=== PATIENT | male | born 1960 | race Caucasian/White ===

== ENCOUNTER 2023-05-25 00:19 | Day surgery (SDC) | payer OTHER, SELFPAY ==
[2023-05-18 11:09] VITALS: BMI 41.6
--- NOTE | 2023-05-24 12:24 | WPDANESEPPF ---
Anes - Initial Pre Proc Eval Procedure: Operation Date: 05/25/23 07:30 Proposed Procedures p Colonoscopy - Slava Capellan MD Date/Time: 05/24/23 12:24 Surgeon: Slava Capellan MD Pre Op Diagnosis: hx colon polyps Patient Data Age: 62 Gender: M Height: 1.78 m Weight: 131.8 kg Allergies Allergy/AdvReac Type Severity Reaction Status Date / Time No Known Allergies Allergy Unknown Unverified 05/25/23 06:12 Home Medications Medication Instructions Recorded Confirmed Type latanoprost 0.005 % eye drops 1 drp EACH EYE DAILY 05/18/23 05/18/23 History lorazepam 1 mg tablet 1 mg PO DAILY PRN flying 05/18/23 05/18/23 History metformin 500 mg tablet,extended 500 mg PO DAILY 05/18/23 05/18/23 History release 24 hr sildenafil 100 mg tablet 100 mg PO DAILY PRN Sexual Activity 05/18/23 05/18/23 History simvastatin 20 mg tablet 20 mg PO HS 05/18/23 05/18/23 History Patient hx anesthesia problems: none Family hx anesthesia problems: none Results Review: All pre-operative results and documents have been reviewed as part of the pre-operative evaluation. [facility] Past Medical History Medical History Diabetes type 2, controlled Hyperlipidemia HENOK (obstructive sleep apnea) Social History Social History Smoking status: Never smoker Alcohol intake: current Drinks per week: 2 Substance use: never Living arrangements: with family Spiritual care concerns: No Anes - Eval Final PreProcedure Day of Procedure 05/24/23 12:24 Patient weight: morbidly obese Heart: regular rate and rhythm Lungs: clear to auscultation Airway: Mallampati scale class II Neurological: alert and oriented Last oral intake: >/= 8 hours ASA classification: III Emergent: no Anesthetic plan: proceed Anesthesia type and monitoring: general GIVS and standard monitoring Results Review: All pre-operative results and documents have been reviewed as part of the pre-operative evaluation. Informed Consent: The patient's anesthetic plan and its attendant risks and benefits were discussed with the patient/family/POA. Questions were solicited and answers provided to the satisfaction of the patient/family/POA.
--- NOTE | 2023-05-24 14:56 | PM.HPGS ---
History of Present Illness History of Present Illness Consent: Risks, benefits, and alternatives have been discussed and questions answered. Patient agrees to proceed with procedure. Chief complaint: hx colon polyps Narrative: Silvestre Mendoza is a 62 year old male referred for colon cancer screening. He had 3 polyps removed about 7 years ago at least 1 of which was a tubular adenoma. Review of Systems Review of Systems: All systems reviewed & are unremarkable except as noted in HPI and below PMFSH Past Medical History Medical History Diabetes type 2, controlled Hyperlipidemia HENOK (obstructive sleep apnea) Social History Social History Smoking status: Never smoker Alcohol intake: current Drinks per week: 2 Substance use: never Living arrangements: with family Spiritual care concerns: No Meds Home Medications and Allergies Home Medications Medication Instructions Recorded Confirmed Type latanoprost 0.005 % eye drops 1 drp EACH EYE DAILY 05/18/23 05/18/23 History lorazepam 1 mg tablet 1 mg PO DAILY PRN flying 05/18/23 05/18/23 History metformin 500 mg tablet,extended 500 mg PO DAILY 05/18/23 05/18/23 History release 24 hr sildenafil 100 mg tablet 100 mg PO DAILY PRN Sexual Activity 05/18/23 05/18/23 History simvastatin 20 mg tablet 20 mg PO HS 05/18/23 05/18/23 History Allergies Allergy/AdvReac Type Severity Reaction Status Date / Time No Known Allergies Allergy Unknown Unverified 05/25/23 06:12 Exam Const: General: alert Orientation/consciousness: patient oriented x3 Resp: Auscultation: clear to auscultation bilaterally Cardio: Rhythm: regular rhythm GI: GI Palp: Yes Soft to palpation and No Tenderness to palpation present (GI) Neuro: General: patient oriented x3 Assessment and Plan Assessment and plan (1) Colon cancer screening: Code(s): Z12.11 - Encounter for screening for malignant neoplasm of colon Status: Acute Assessment and Plan: Colonoscopy with possible biopsy or polypectomy or cautery or injection of substances.
[2023-05-25 06:18] VITALS: BP 142/80; PULSE 85; RESP 18; TEMP 36.2; O2SAT 98
[2023-05-25] MEDS: LACTATED RINGERS 1,000 ML 150 ML IV CONT (06:29)
[2023-05-25 06:32] LABS: Glucose Point of Care 159 mg/dl (65-105)
[2023-05-25 07:47] VITALS: BP 112/71; PULSE 82; RESP 17; O2SAT 93
[2023-05-25 07:57] VITALS: BP 120/76; PULSE 83; RESP 16; O2SAT 98
[2023-05-25 08:07] VITALS: BP 125/77; PULSE 76; RESP 20; O2SAT 97
== END 2023-05-25 08:18 | disposition home or self-care (01) ==
PROVIDERS: PCP Family Medicine; Visit Provider Internal Medicine Gastroenterology
PROC: 0DJD8ZZ Inspection of Lower Intestinal Tract, Via Natural or Artificial Opening Endoscopic (ICD-10-PCS; CPT 45378; principal; 2023-05-25 07:30)
DX: Z12.11 Encounter for screening for malignant neoplasm of colon (principal); K62.1 Rectal polyp; K57.30 Diverticulosis of large intestine without perforation or abscess without bleeding; E11.9 Type 2 diabetes mellitus without complications; E78.5 Hyperlipidemia, unspecified; G47.33 Obstructive sleep apnea (adult) (pediatric); Z79.84 Long term (current) use of oral hypoglycemic drugs; E66.01 Morbid (severe) obesity due to excess calories; Z68.41 Body mass index [BMI] 40.0-44.9, adult
CPT/HCPCS: 45380; 82948; 88305; J2704; J7120

== ENCOUNTER → 2023-07-08 08:39 | Outpatient (CLI) | payer OTHER, SELFPAY ==
--- NOTE | ~2023-07-08 | CT_ITS ---
CT of the Abdomen and Pelvis: Indication: Hematuria Technique: 2.5 mm axial scans were obtained through the abdomen and pelvis prior to and following in travenous administration of 130 cc of Omnipaque 350. Dose reduction technique was used on this scan b y utilizing automated exposure control and iterative reconstruction technique. The dose-length produc t (DLP) was 2339.92 mGy-cm. Findings: Scans through the lung bases are unremarkable. The liver, spleen, pancreas, gallbladder, adrenals and kidneys are within normal limits. No evidence of aortic aneurysm. No lymphadenopathy. No bowel obstruction or bowel wall thickening. Sigmoid diverticulosis noted. Images through the pelvis were performed. There is an apparent 8 mm polypoid thickening of the left u rinary bladder wall on postcontrast images (series 6 image 118). There is mild asymmetric enlargement of the right seminal vesicle as compared to the left, nonspecific. Prostate gland is not enlarged. Impression: Possible 8 mm mass along the left urinary bladder wall on postcontrast images. Consider cystoscopy to further evaluate. Relative asymmetric enlargement of the right seminal vesicle as compared to the left, of uncertain cl inical significance. Sigmoid diverticulosis. Reviewed, dictated and finalized at location . Impression: Possible 8 mm mass along the left urinary bladder wall on postcontrast images. Consider cystoscopy to further evaluate. Relative asymmetric enlargement of the right seminal vesicle as compared to the left, of uncertain clinical significance. Sigmoid diverticulosis.
--- NOTE | ~2023-07-08 | XR_ITS ---
Supine and upright views of the abdomen Clinical history: Hematuria Findings: Bowel gas pattern is nonspecific. No evidence for obstruction or free air. No abnormal mass lesion or calcification is seen. Osseous structures are intact. Impression: No significant abnormality is seen. Reviewed, dictated and finalized at [facility]. Impression: No significant abnormality is seen.
[2023-07-08 09:03] LABS: Estimated Glomerular Filt Rate > 60
== END ==
PROVIDERS: PCP Urology; Visit Provider Urology
DX: R31.0 Gross hematuria (principal); K57.30 Diverticulosis of large intestine without perforation or abscess without bleeding
CPT/HCPCS: 74018; 74178; Q9967

== ENCOUNTER 2023-07-26 01:33 | Day surgery (SDC) | payer OTHER, SELFPAY ==
[2023-07-25 10:42] VITALS: BMI 41.1
--- NOTE | 2023-07-25 10:49 | PC.NURSE ---
Report to the Outpatient Waiting Room, entrance under the green pavilion located off [facility], at time _1200 on date __07/26/23 . Planned Procedure Time: ___2PM . Time changes happen often and if your time is changed the preop area will call you the afternoon before. - You and your visitor will be asked to self-screen and do not enter if you have any COVID symptoms. - A mask is optional within the hospital at this time. Patients may have clear liquids (water, carbonated beverages, clear teas, apple juice) until 3 hours prior to surgery (1100 AM) with a maximum of 20 ounces. - No food from midnight until time of surgery - Infants may have breast milk until 4 hours before surgery, formula 6 hours prior to surgery. - Children will be allowed to drink immediately following surgery. If applicable, please bring a bottle or sippy cup to assist with drinking. Juice, water, soda, and popsicles are readily available. For infants on formula, please bring formula the day of surgery. Pacifiers are allowed. Take the following medications with a SIP of water the morning of surgery: NONE DO NOT STOP ANY OF YOUR OTHER PRESCRIPTION MEDICATIONS PRIOR TO SURGERY ?EXCEPT THE FOLLOWING Medications to discontinue per physician N/A Date to take last dose Please no make-up, nail norwegian, hairspray, perfume, deodorant, or body powder the day of surgery. No jewelry (including any body piercings) or valuables the day of surgery, leave them at home. Please take a shower or bath the night before, or the morning of, surgery with an antibacterial soap. Wear comfortable, loose fitting clothing. Children are encouraged to wear pajamas. - Jewelry must be removed prior to entering the operating room. Rings and piercings that are not removed may be cut off. - The hospital will not accept responsibility for valuables. - Please leave all valuables, including medications, at home the day of surgery. If you are going home after surgery, a licensed solo truck driver must drive you home. - NO public transportation without another adult if you receive anesthesia. - We recommend that an adult stay with you for 24 hours following discharge. - We also recommend that you do not drive, make important decision, drink alcoholic beverages, or take any drugs that were not prescribed by your health care provider for at least 24 hours after your discharge time. For Pediatric surgeries, we recommend two adults accompany the child home. Follow any additional instructions given to you from your surgeon. If you or anyone in your household have experienced Covid symptoms in the past week, please notify your surgeon or the nurse liaison at the phone number below for possible testing. Telephone instructions given to ____PT and asked if any additional questions and then verbalized understanding. Patient advised to call surgeon office or pre surgery nurse liaison [phone] if any additional questions.
--- NOTE | 2023-07-25 13:38 | WPDANESEPPF ---
Anes - Initial Pre Proc Eval Procedure: Operation Date: 07/26/23 14:00 Proposed Procedures p Trans Urethral Resection Bladder Tumor, - Alan Menjivar MD s Possible Trans Urethral Resection Prostate - Alan Menjivar MD Date/Time: 07/25/23 13:38 Surgeon: Alan Menjivar MD Pre Op Diagnosis: gross hematuria, bladder and prostate lesions Patient Data Age: 63 Gender: M Height: 1.78 m Weight: 130 kg Allergies Allergy/AdvReac Type Severity Reaction Status Date / Time No Known Allergies Allergy Unknown Verified 07/26/23 12:55 Home Medications Medication Instructions Recorded Confirmed Type latanoprost 0.005 % eye drops 1 drp EACH EYE HS 05/18/23 07/25/23 History lorazepam 1 mg tablet 1 mg PO DAILY PRN flying 05/18/23 07/25/23 History sildenafil 100 mg tablet 100 mg PO DAILY PRN Sexual Activity 05/18/23 07/25/23 History simvastatin 20 mg tablet 20 mg PO HS 05/18/23 07/25/23 History dulaglutide 0.75 mg/0.5 mL 0.75 mg subcut WEEKLY 07/25/23 07/25/23 History subcutaneous pen injector (Trulicity) sitagliptin phosphate 100 mg 100 mg DAILY 07/25/23 07/25/23 History tablet (Januvia) docusate sodium 100 mg capsule 100 mg PO BID #14 caps 07/27/23 Rx hyoscyamine sulfate 0.125 mg 0.125 mg sublingual Q6H PRN 07/27/23 Rx disintegrating tablet (Anaspaz) Bladder Spasm #20 tabs Patient hx anesthesia problems: none Family hx anesthesia problems: none Results Review: All pre-operative results and documents have been reviewed as part of the pre-operative evaluation. [facility] Past Medical History Medical History Diabetes type 2, controlled Hyperlipidemia HENOK (obstructive sleep apnea) Social History Social History Smoking status: Never smoker Second hand tobacco smoke exposure: No Alcohol intake: current Drinks per week: 2 Substance use: never Substance use type: does not use Lack of Transportation: No Lack of Food: Never True Current Housing: Decline to Answer Concerned About Future Housing: Decline to Answer Difficulty Paying Gas/Electric Bills: Decline to Answer Difficulty Paying for Meds: Decline to Answer Currently Unemployed: Decline to Answer Education: Decline to Answer Difficulty w/ Childcare or Family Care: Decline to Answer Living arrangements: with family Spiritual care concerns: No Anes - Eval Final PreProcedure Day of Procedure 07/25/23 13:38 Patient weight: morbidly obese Heart: regular rate and rhythm Lungs: clear to auscultation Airway: Mallampati scale class II Neurological: alert and oriented Last oral intake: >/= 8 hours ASA classification: III Emergent: no Anesthetic plan: proceed Anesthesia type and monitoring: general LMA and standard monitoring Results Review: All pre-operative results and documents have been reviewed as part of the pre-operative evaluation. Informed Consent: The patient's anesthetic plan and its attendant risks and benefits were discussed with the patient/family/POA. Questions were solicited and answers provided to the satisfaction of the patient/family/POA.
[2023-07-26] VITALS (10 sets, daily range): BP systolic 122–168; BP diastolic 62–91; PULSE 77–98; RESP 15–22; TEMP 36.2–37; O2SAT 95–98; BMI 39.9
--- NOTE | 2023-07-26 05:55 | ECG_ITS ---
Measurements Intervals [place] Rate: 84 P: 38 AR: 165 QRS: -1 QRSD: 92 T: 31 QT: 363 QTc: 429 Interpretive Statements SINUS RHYTHM NO PREVIOUS ECG AVAILABLE FOR COMPARISON Electronically Signed On 07-26-2023 19:54:26 CDT by Nicole Burr M.D.
--- NOTE | 2023-07-26 07:56 | WPDHPUPDATE1 ---
History and Physical Update Update Date/Time: 07/26/23 07:56 History and Physical has been reviewed, including an updated exam of the patient. There are NO changes in the patient's condition. Risks, benefits, and alternatives have been discussed and questions answered. Patient agrees to proceed with procedure. PROCEED WITH TRANSURETHRAL SECTION OF BLADDER TUMOR, POSSIBLE TRANSURETHRAL RESECTION OF PROSTATE
[2023-07-26] MEDS: LACTATED RINGERS 1,000 ML 30 ML IV CONT (08:45)
[2023-07-26 08:56] LABS: Basophils Absolute Auto 0.1 K/mm3 (0.0-0.1); Basophils Percent Auto 0.7 % (0.2-1.2); Eosinophils Percent Auto 0.4 % (0-4.4); Hematocrit 49.8 % (42.0-52.0); Hemoglobin 17.2 g/dL (14.0-18.0); Immature Granulocyte Absolute 0.02 K/mm3 (0.00-0.031); Immature Granulocyte Percent A 0.3 % (0-0.5); Immature Platelet Fraction Pct 3.6 % (0.9-11.2); Lymphocytes Absolute Auto 1.64 K/mm3 (0.9-3.2); Lymphocytes Percent Auto 24.6 % (18.3-44.2); Mean Corpuscular HGB Conc 34.5 g/dl (32-36); Mean Corpuscular Volume 95.4 fl (80-100); Monocytes Absolute Auto 0.7 K/mm3 (0.1-0.6); Monocytes Percent Auto 9.7 % (2.6-8.5); Neutrophils Absolute Auto 4.3 K/mm3 (1.3-6.7); Neutrophils Percent Auto 64.3 % (45.5-73.1); Platelet Count Result 151 k/mm3 (150-375); Red Blood Count 5.22 M/mm3 (4.6-6.20); Red Cell Distribution Width 12.1 % (11.5-14.5); White Blood Count 6.7 K/mm3 (4.5-10.0)
[2023-07-26 09:05] LABS: Prothrombin Time 13.2 Seconds (11.1-14.7)
[2023-07-26 09:06] LABS: Partial Thromboplastin Time 28.1 SECONDS (22.3-36.8)
[2023-07-26 09:08] LABS: Anion Gap 8 mmol/L (8-16); Blood Urea Nitrogen 13 mg/dL (9-20); Calcium 9.9 mg/dL (8.4-10.2); Carbon Dioxide 27 mmol/L (22-30); Chloride 103 mmol/L (98-107); Estimated CRCL calculation 124 ml/min; Estimated Glomerular Filt Rate > 60; Glucose 118 mg/dL (65-110); Potassium 4.2 mmol/L (3.4-5.0); Sodium 138 mmol/L (137-145)
[2023-07-26] MEDS: ceFAZolin 3 GM/D5W 100 ML 100 ML IVPB (09:50)
[2023-07-26] MEDS: fentaNYL CITRATE INJ (*CRX) 100 MCG/2 ML VIAL 25 MCG IV PUSH ×4 (10:31→11:40)
[2023-07-26] MEDS: LIDOCAINE HCL 2% GEL UROJET 10 ML PKG MUCOUS MEM (10:32)
--- NOTE | 2023-07-26 10:48 | P.OP_ITS ---
Procedure Note - Detailed Date of Procedure 07/26/23 Pre-op Diagnosis gross hematuria, bladder and prostate lesions Post-op Diagnosis Same Procedure Performed Transurethral resection of bladder tumor greater than 5 cm area, transurethral section of prostate Surgeon Alan Menjivar MD Anesthesia General Description of Procedure Patient is taken to the operative suite correctly. Once anesthesia was obtained was placed in dorsal lithotomy position and prepped and draped usual sterile fashion. Twenty-four Bulgarian resectoscope sheath inserted the bladder. His prostatic urethra has some papillary lesions along it circumferentially. This is extending to the bladder neck area. In addition he has a least 2 cm lesion along the left lateral wall with significant edema or erythema around that area. Another area of erythema is on the floor. The total area is at least 5 cm if not more. I resected the left lateral wall lesion sent that as a specimen. I then resected the floor erythematous area. I thoroughly resected the prostatic urethra and sent that as a specimen. And then resected some of the prostate tissue in addition. Rollerball was used for hemostasis. There appeared to be good hemostasis at termination of procedure. 2% viscous lidocaine was inserted into the urethra patient is taken recovery in stable condition after a [address] and connected to continuous bladder irrigation. This completes dictation. Please send a copy of op note to my office Estimated Blood Loss 20 Drains Yes Packing No Pathology Yes Complications No immediate complications Condition Stable Disposition PACU
[2023-07-26 11:07] LABS: Glucose Point of Care 119 mg/dl (65-105)
--- NOTE | 2023-07-26 12:11 | ADMGEN ---
This patient, Silvestre Mendoza, was admitted to Medical Room 343-01. Patient/family oriented to hospital policies and general routines including ID bracelet, bed and alarms, visiting hours, pain management, procedures, bathroom and other care routines, personal items, smoking policy, room service/diet, and visiting hours. Information on how to activate the Rapid Response Team has been discussed. Patient/Family are encouraged to report perceived risks to care and to ask questions if they do not understand what they are told or what they should do.
[2023-07-26] MEDS: HYOSCYAMINE SULFATE 0.125 MG TABLET SUBLINGUAL ×2 (14:50→20:53)
[2023-07-26] MEDS: DOCUSATE SODIUM 100 MG CAPSULE PO (16:56)
[2023-07-26] MEDS: HYDROcodone/acetaminophen (*CRX) 5-325 MG TABLET 1 TAB PO ×2 (16:57→20:54)
[2023-07-26] MEDS: ceFAZolin 1 GM/NS 50 ML 1 GM/50 ML BAG IVPB (17:02)
[2023-07-27 00:36] VITALS: BP 118/67; PULSE 73; RESP 18; TEMP 36.5; O2SAT 97
[2023-07-27] MEDS: HYDROcodone/acetaminophen (*CRX) 5-325 MG TABLET 1 TAB PO ×3 (03:11→13:53)
[2023-07-27] MEDS: HYOSCYAMINE SULFATE 0.125 MG TABLET SUBLINGUAL (03:12)
[2023-07-27] MEDS: ceFAZolin 1 GM/NS 50 ML 1 GM/50 ML BAG IVPB (03:12)
[2023-07-27 05:23] LABS: Hematocrit 48.8 % (42.0-52.0); Hemoglobin 16.5 g/dL (14.0-18.0)
[2023-07-27 05:53] LABS: Anion Gap 7 mmol/L (8-16); Blood Urea Nitrogen 11 mg/dL (9-20); Calcium 9.4 mg/dL (8.4-10.2); Carbon Dioxide 27 mmol/L (22-30); Chloride 103 mmol/L (98-107); Estimated CRCL calculation 110 ml/min; Estimated Glomerular Filt Rate > 60; Glucose 116 mg/dL (65-110); Potassium 4.2 mmol/L (3.4-5.0); Sodium 137 mmol/L (137-145)
[2023-07-27 06:11] VITALS: BP 104/65; PULSE 65; RESP 16; TEMP 36.2; O2SAT 98
[2023-07-27] MEDS: DOCUSATE SODIUM 100 MG CAPSULE PO (08:43)
--- NOTE | 2023-07-27 12:08 | WPDUROPN2 ---
Progress Note: A&P Assessment and Plan (1) BPH (benign prostatic hyperplasia): Code(s): N40.0 - Benign prostatic hyperplasia without lower urinary tract symptoms Status: Acute Assessment and Plan: Ok to discharge pt. home with leg bag, teach catheter care. Give a large bag for overnight to switch to. Will plan to remove catheter on Tuesday. (2) Bladder mass: Code(s): N32.89 - Other specified disorders of bladder Status: Acute Subjective Subjective Date/Time Seen: 07/27/23 12:08 Post Op day: 1 Principal diagnosis: Bladder Mass/BPH Interval history: Pt. is s/p Cystoscopy with TURBT, TURP. He is doing very well, he has no pain, is tolerating diet and activity well. He does c/o of mild catheter irritation but urine is clear off CBI. Review of Systems Cardiovascular: Cardiovascular: Denies chest pain Respiratory: Respiratory: Reports no additional respiratory complaints Gastrointestinal: Gastrointestinal: Denies abdominal pain, Denies nausea and Denies vomiting Genitourinary: Genitourinary: Denies hematuria, Denies dysuria, Denies flank pain, Denies urinary frequency, Denies urinary hesitancy, Denies urinary incontinence and Reports urinary urgency Exam Const: General: cooperative and comfortable Resp: Effort & Inspection: normal respiratory effort Cardio: Rate: regular rate GI: GI Palp: Yes Soft to palpation and No Tenderness to palpation present (GI) : General: Yes no CVA tenderness Urinary Catheter: Urinary Catheter: patent and draining and urine clear Extrem: Right upper extremity: no edema Left upper extremity: no edema Objective Data Vital Signs Vital Signs: Vital Signs - 24 hr 07/26/23 12:10 07/26/23 12:25 07/26/23 12:55 Temperature 98.2 F 97.9 F 97.9 F Pulse Rate 83 81 77 Respiratory Rate 18 18 16 Blood Pressure 143/86 H 136/84 139/86 Pulse Oximetry 95 96 97 Oxygen Delivery 07/26/23 14:00 07/26/23 14:29 07/26/23 20:25 Temperature 97.5 F L 97.2 F L Pulse Rate 80 86 Respiratory Rate 16 18 Blood Pressure 122/83 126/62 Pulse Oximetry 97 98 Oxygen Delivery Room Air 07/26/23 20:00 07/27/23 00:36 07/27/23 06:11 Temperature 97.7 F 97.2 F L Pulse Rate 73 65 Respiratory Rate 18 16 Blood Pressure 118/67 104/65 Pulse Oximetry 97 98 Oxygen Delivery Room Air 07/27/23 08:00 Temperature Pulse Rate Respiratory Rate Blood Pressure Pulse Oximetry Oxygen Delivery Room Air Intake/Output Intake/Output: Intake & Output 07/24/23 07/25/23 07/26/23 07/27/23 23:59 23:59 23:59 23:59 Intake Total 2280 810 Output Total 9722391 0660 Balance -82680 -2625 Meds/Results Medications: Active Medications Generic Name Dose Route Start Last Admin Trade Name Freq PRN Reason Stop Dose Admin Hydrocodone Bitart/Acetaminophen 1 tab 07/26/23 13:23 07/27/23 08:44 Hydrocodone/Acetaminophen (*Crx) 5-325 Mg Tablet PO 1 tab Q4H PRN Administration Pain 4-6 Docusate Sodium 100 mg 07/26/23 17:00 07/27/23 08:43 Docusate Sodium 100 Mg Capsule PO 100 mg BID CHRISTIN Administration Hyoscyamine 0.125 mg 07/26/23 13:24 07/27/23 03:12 Hyoscyamine Sulfate 0.125 Mg Tablet SUBLINGUAL 0.125 mg Q6H PRN Administration Bladder Spasm Morphine Sulfate 2 mg 07/26/23 13:23 Morphine Sulfate (*Crx) 2 Mg/Ml Inj IV PUSH Q2H PRN Pain Rated 7-10 Naloxone HCl 0.1 mg 07/26/23 13:20 Naloxone Hcl 0.4 Mg/Ml Vial IV PUSH Q5MIN PRN Opiate Reversal Ondansetron HCl 4 mg 07/26/23 13:21 Ondansetron Inj 4 Mg/2 Ml Vial IV PUSH Q12H PRN Nausea And Vomiting Labs Labs: Laboratory Results - last 24 hr 07/27/23 05:04 Hgb 16.5 Hct 48.8 Sodium 137 Potassium 4.2 Chloride 103 Carbon Dioxide 27 Anion Gap 7 L BUN 11 Creatinine 0.80 Estim Creat Clear Calc 110 Estimated GFR > 60 Glucose 116 H Calcium 9.4
--- NOTE | 2023-07-27 12:59 | WPDANESPN ---
Anes - Prog Note Post-Op Date/Time: 07/27/23 12:59 Cardiovascular status: normal Respiratory status: normal Airway patency: baseline Mental status: baseline Post-Op hydration status: normal Vital Signs: Last Vital Signs Temp 36.2 C L 07/27/23 06:11 Pulse 65 07/27/23 06:11 Resp 16 07/27/23 06:11 BP 104/65 07/27/23 06:11 Pulse Ox 98 07/27/23 06:11 O2 Del Method Room Air 07/27/23 08:00 O2 Flow Rate 6 07/26/23 10:56 Pain Score (VAS): 1 I/O: Intake & Output 07/26/23 07/27/23 07/27/23 23:59 07:59 15:59 Intake Total 840 450 360 Output Total 14327 3200 1500 Balance -30551 -2750 -1140 Laboratory Tests 07/27/23 05:04 07/27/23 05:04 07/27/23 05:04 Hgb 16.5 Hct 48.8 Sodium 137 Potassium 4.2 Chloride 103 Carbon Dioxide 27 Anion Gap 7 L BUN 11 Creatinine 0.80 Estim Creat Clear Calc 110 Estimated GFR > 60 Glucose 116 H Calcium 9.4 Post-procedural complaints: none Patient Feedback: Patient satisfied with anesthetic care.
--- NOTE | 2023-07-27 15:03 | PC.NURSE ---
Extensive catheter care and instructions given to patient and . Instructions on how to switch out leg back and large bag. Both verbalized understanding.
== END 2023-07-27 15:04 | disposition home or self-care (01) ==
LOC: ANHSURGERY 07:56 → ANH3MED 11:48
PROVIDERS: Visit Provider Urology
PROC: 0TBB8ZZ Excision of Bladder, Via Natural or Artificial Opening Endoscopic (ICD-10-PCS; CPT 52601; principal; 2023-07-26 08:30)
PROC: 0VT08ZZ Resection of Prostate, Via Natural or Artificial Opening Endoscopic (ICD-10-PCS; CPT 52601; 2023-07-26 08:30)
DX: C67.8 Malignant neoplasm of overlapping sites of bladder (principal); N40.0 Benign prostatic hyperplasia without lower urinary tract symptoms; E11.9 Type 2 diabetes mellitus without complications; E78.5 Hyperlipidemia, unspecified; G47.33 Obstructive sleep apnea (adult) (pediatric); Z79.85 Long-term (current) use of injectable non-insulin antidiabetic drugs; Z79.84 Long term (current) use of oral hypoglycemic drugs; E66.01 Morbid (severe) obesity due to excess calories; Z68.41 Body mass index [BMI] 40.0-44.9, adult; Z87.891 Personal history of nicotine dependence; F12.90 Cannabis use, unspecified, uncomplicated
CPT/HCPCS: 52601; 52240; 36415; 80048; 82948; 85014; 85018; 85025; 85055; 85610; 85730; 88305; 88342; 93005; A9270; G0416; J0330; J0690; J1100; J2250; J2405; J2704; J3010; J7120

== ENCOUNTER 2023-08-13 08:23 | Emergency (ER) | payer OTHER, SELFPAY ==
[2023-08-13 08:29] VITALS: BP 168/86; PULSE 98; RESP 20; TEMP 36.6; O2SAT 98
--- NOTE | 2023-08-13 08:43 | ED.MALEGU ---
HPI - Male Genitourinary General Chief complaint: Urogenital-Male Stated complaint: urinary retention Time Seen by Provider: 08/13/23 08:35 History of Present Illness HPI Narrative: Pt had TURP 2wk ago w/ Dr Menjivar, had bazzi removed 3d later and was doing well for a week though some burning with urination, then since yesterday has been unable to void, but feels the need to go frequently. What little comes out is blood. Related Data Home Medications Medication Instructions Recorded Confirmed latanoprost 0.005 % eye drops 1 drp EACH EYE HS 05/18/23 07/25/23 lorazepam 1 mg tablet 1 mg PO DAILY PRN flying 05/18/23 07/25/23 sildenafil 100 mg tablet 100 mg PO DAILY PRN Sexual Activity 05/18/23 07/25/23 simvastatin 20 mg tablet 20 mg PO HS 05/18/23 07/25/23 dulaglutide 0.75 mg/0.5 mL 0.75 mg subcut WEEKLY 07/25/23 07/25/23 subcutaneous pen injector (Trulicity) sitagliptin phosphate 100 mg 100 mg DAILY 07/25/23 07/25/23 tablet (Januvia) Allergies Allergy/AdvReac Type Severity Reaction Status Date / Time No Known Allergies Allergy Unknown Verified 08/13/23 08:34 Review of Systems Review of Systems: CONST: No fever. HEENT: No sore throat C/V: No chest pain RESP: No cough GI: Some abdominal discomfort : Hematuria/dysuria and retention M/S: No joint pain. SKIN: No rash. NEURO: [No headache or focal numbness or weakness] PSYCH: [No depression] [facility] Past Medical History Medical History Diabetes type 2, controlled Hyperlipidemia HENOK (obstructive sleep apnea) Social History Social History Smoking status: Never smoker Second hand tobacco smoke exposure: No Alcohol intake: current Drinks per week: 2 Substance use: never Substance use type: does not use Lack of Transportation: No Lack of Food: Never True Current Housing: Decline to Answer Concerned About Future Housing: Decline to Answer Difficulty Paying Gas/Electric Bills: Decline to Answer Difficulty Paying for Meds: Decline to Answer Currently Unemployed: Decline to Answer Education: Decline to Answer Difficulty w/ Childcare or Family Care: Decline to Answer Living arrangements: with family Spiritual care concerns: No Exam Narrative: EXAMINATION OF ORGAN SYSTEMS/BODY AREAS: Constitutional: Vital signs per nursing GENERAL:[No acute distress, non-toxic appearing.] HEAD: Normal with no signs of head trauma. EYES: EOMI, conjunctiva normal ENT: Hearing grossly intact LUNGS: Nonlabored breathing. HEART: [Regular rate and rhythm] ABD: [Soft], [slightly tender to palpation] suprapubic EXT: Normal range of motion SKIN: [No rashes or lesions.] NEURO: [Alert and oriented x 3. No gross focal sensory or strength deficits.] PSYCH: Normal affect Course Vital Signs Vital signs: Vital Signs Temperature 97.8 F 08/13/23 08:29 Pulse Rate 98 08/13/23 08:29 Respiratory Rate 20 08/13/23 08:29 Blood Pressure 168/86 H 08/13/23 08:29 Pulse Oximetry 98 08/13/23 08:29 Oxygen Delivery Room Air 08/13/23 08:29 Temperature 97.8 F 08/13/23 08:29 Pulse Rate 98 08/13/23 08:29 Respiratory Rate 20 08/13/23 08:29 Blood Pressure 168/86 H 08/13/23 08:29 Pulse Oximetry 98 08/13/23 08:29 Oxygen Delivery Room Air 08/13/23 08:29 MDM - Male Genitourinary MDM Narrative Medical decision making narrative: EMR reviewed including urology notes and office notes. Patient presenting with urinary retention and suprapubic discomfort and hematuria, had TURP with urologist about 10 days ago, and a few days ago started having more dysuria. VSS, on exam appears uncomfortable, scant blood at meatus. Ddx incl UTI, hematuria causing obstruction/retention, also want to r/o AISHWARYA. Bazzi placed w/ immediate relief, UA showing RBC/WBC w/ bacteria so I will start abx. Cr wnl. Pt counseled to f/u wit
[2023-08-13 09:02] LABS: Basophils Absolute Auto 0.1 K/mm3 (0.0-0.1); Basophils Percent Auto 0.7 % (0.2-1.2); Eosinophils Absolute Auto 0.1 K/mm3 (0-0.3); Eosinophils Percent Auto 0.4 % (0-4.4); Hematocrit 49.6 % (42.0-52.0); Hemoglobin 16.7 g/dL (14.0-18.0); Immature Granulocyte Absolute 0.04 K/mm3 (0.00-0.031); Immature Granulocyte Percent A 0.3 % (0-0.5); Lymphocytes Absolute Auto 1.68 K/mm3 (0.9-3.2); Lymphocytes Percent Auto 13.8 % (18.3-44.2); Mean Corpuscular HGB Conc 33.7 g/dl (32-36); Mean Platelet Volume 9.8 fl (7.4-10.4); Monocytes Absolute Auto 0.7 K/mm3 (0.1-0.6); Monocytes Percent Auto 5.5 % (2.6-8.5); Neutrophils Absolute Auto 9.7 K/mm3 (1.3-6.7); Neutrophils Percent Auto 79.3 % (45.5-73.1); Platelet Count Result 228 k/mm3 (150-375); Red Blood Count 5.22 M/mm3 (4.6-6.20); Red Cell Distribution Width 12.2 % (11.5-14.5); White Blood Count 12.2 K/mm3 (4.5-10.0)
[2023-08-13 09:12] LABS: Anion Gap 13 mmol/L (8-16); Blood Urea Nitrogen 23 mg/dL (9-20); Calcium 9.8 mg/dL (8.4-10.2); Carbon Dioxide 24 mmol/L (22-30); Chloride 102 mmol/L (98-107); Estimated CRCL calculation 110 ml/min; Estimated Glomerular Filt Rate > 60; Glucose 160 mg/dL (65-110); Potassium 4.7 mmol/L (3.4-5.0); Sodium 139 mmol/L (137-145)
[2023-08-13] MEDS: HYDROcodone/acetaminophen (*CRX) 5-325 MG TABLET 1 TAB PO (10:14)
[2023-08-13] MEDS: LIDOCAINE HCL 2% GEL UROJET 10 ML PKG MUCOUS MEM (10:14)
[2023-08-13 11:03] LABS: Appearance Urine Turbid (Clear); Bilirubin Urine Negative (Negative); Blood Urine 3+ (Negative); Color Urine Red (Yellow); Glucose Urine UA Negative (Negative); Ketones Urine Negative (Negative); Leukocyte Esterase Ur Trace LEU/UL (Negative); Nitrate Urine Negative (Negative); Protein Urine 3+ mg/dL (Negative); Specific Grav Ur >= 1.030 (1.001-1.035); Urobilinogen Urine 0.2 mg/dL (<2.0); pH Urine 6.5 (5.0-9.0)
[2023-08-13 11:12] LABS: Add Urine Microscopic? YES; Bacteria Urine 1+ /hpf; RBC Urine >100 /hpf (0-2); WBC Urine >100 /hpf
[2023-08-13] MEDS: levoFLOXacin 750 MG TABLET PO (11:33)
[2023-08-13 11:46] VITALS: BP 140/84; PULSE 84; RESP 16; O2SAT 99
== END 2023-08-13 11:47 | disposition home or self-care (01) ==
PROVIDERS: Emergency Provider Emergency Medicine
DX: R33.9 Retention of urine, unspecified (principal); R31.9 Hematuria, unspecified; E11.9 Type 2 diabetes mellitus without complications; E78.5 Hyperlipidemia, unspecified; G47.33 Obstructive sleep apnea (adult) (pediatric); Z79.84 Long term (current) use of oral hypoglycemic drugs; Z79.85 Long-term (current) use of injectable non-insulin antidiabetic drugs
CPT/HCPCS: 36415; 51702; 80048; 81001; 85025; 87086; 87088; 99283; A9270

== ENCOUNTER 2025-06-17 10:18 | Outpatient (CLI) | payer MEDICARE, OTHER, SELFPAY ==
--- OUTSIDE RECORDS SUMMARY | 2006-01-12 10:15 | XMS_ITS | Continuity of Care Document ---
Author Organization [facility] Address [address] [place] [address] Phone Care Team Providers Care Dress Operator Name Role Phone Rutherford OD, Benjy Unavailable Unavailable Advance Directives Directive Yes / No Effective Date File Name No Information Encounters Encounter Description Practice Location Reason(s) For Visit Diagnoses Date Provider Providers Copied on Encounter [facility], [address], [place], [place], [id number], [place] tel:[phone] [facility] [place] No Information 2-200 6 Rutherford OD Benjy. [address] [facility] [place] , [address], [place], [address], [place]. tel:[phone] Family History Family Member Type Diagnosis Age [...]
--- NOTE | ~2025-06-17 | US_ITS ---
EXAMINATION: US abdomen complete DATE: 06/17/2025 11:45 INDICATION: Abnormal levels of other serum enzymes TECHNIQUE: Multiple grayscale and Doppler ultrasound images of the abdomen were obtained. COMPARISON: CT dated 07/08/2023 FINDINGS: Liver has normal contour, with a smooth surface. There is increased parenchymal echogenicity and coarsened echotexture consistent with diffuse hepatic steatosis. Small geographic region of more hypoechoic focal fatty sparing along the gallbladder fossa near the neck of the gallbladder corresponding to the region of focal fatty sparing evident on the prior CT. No intrahepatic biliary duct dilation suspected. Portal venous flow was seen in the hepatopetal, normal direction and has normal Doppler waveform. Visualized portion of the pancreatic body is unremarkable. The pancreatic head and tail are obscured. The gallbladder is normal in appearance. There is no cholelithiasis. The common bile duct rocio ures 4-5 mm, which is normal. Sonographic Pierre sign was reported as negative by the cardiology fellow. There is normal renal contour and echogenicity bilaterally. The right kidney measures 13.9 x 6.3 x 7.1 cm and the left 12.7 x 6.8 x 6.5 cm. There are no focal renal lesions identified. There is no hydronephrosis. Normal spleen measuring 12.2 cm. Aorta is poorly visualized. Visualized portion of the mid aorta appears normal measuring 2.2 cm in maximal diameter. IMPRESSION: 1. Diffuse hepatic steatosis with focal sparing along the gallbladder fossa. Otherwise unremarkable abdominal ultrasound. Reviewed, dictated and finalized at location A. IMPRESSION: 1. Diffuse hepatic steatosis with focal sparing along the gallbladder fossa. Ot herwise unremarkable abdominal ultrasound.
--- OUTSIDE RECORDS SUMMARY | 2025-06-17 11:17 | XMS_ITS | Clinical Summary ---
Author Organization [facility] Address [address] [place] [address] Care Team Providers Care Profile Shaper Operator Name Role Phone Kaden Leon MD Primary Care Provider [phone] Source Comments [facility],non-owned Affiliates and Associated Physician Practices is amultiple site organization consisting of ambulatory clinics and hospital sitesin [place], [place], [place] and [place]. This disclosure is being madepursuant to the Care Everywhere program and may not contain all information available regarding this patient. Last updated 18.[facility] Allergies No known active allergies Medications * Be aware that medications may not be up to date on this document. Alwaysverify current medications with the patient. Medication Sig Dispense Quantity Refills Last Filled Start D ate End Date Status SIMVASTATIN PO Activ e Social History Tobacco Use Types Packs/Day Years Used Date Smoking Tobacco: Never Smokeless Tobacco: Never Sex and Gender Information Value Date Recorded Sex Assigned at Not on file Legal Sex Male 4:35 AM MATERIALS PLANNING ANALYST Gender Identity Not on file Sexual Orientation Not on file Last Filed Vital Signs Vital Sign Reading Time Taken Comments Blood Pressure 118/70 11/08/2018 9:21 AM MATERIALS PLANNING ANALYST Pulse 116 11/08/2018 9:21 AM MATERIALS PLANNING ANALYST Temperature 36.7 C (98.1 F) 11/08/2018 9:21 AM MATERIALS PLANNING ANALYST Respiratory Rate 16 11/08/2018 9:21 AM MATERIALS PLANNING ANALYST Oxygen Saturation 94% 11/08/2018 9:21 AM MATERIALS PLANNING ANALYST Inhaled Oxygen Concentration - - Weight 117.9 kg (260 lb) 11/08/2018 9:21 AM MATERIALS PLANNING ANALYST Height 177.8 cm (5' 10) 11/08/2018 9:21 AM MATERIALS PLANNING ANALYST Body Mass Index 37.31 11/08/2018 9:21 AM MATERIALS PLANNING ANALYST Plan of Treatment Health Maintenance Due Date Last Done Comments COLOGUARD (AGES 45-75) - COL ON CA SCREENING 1960 COLON MONITORING 1960 COLONOSCOPY - COLON CA SCREENING 1960 CT COLONOGRAPHY - COLON CA SCREENING 1960 Colorectal Cancer Screening 1960 FIT - COLON CA SCREENING 1960 FLEX SIG - COLON CA SCREENING 1960 HIV SCREENING 1975 HEPATITIS C SCREENING 06/22/1978 DTAP/TDAP/TD VACCINES (1 - Tdap) 1979 PNEUMOCOCCAL VACCINE 50+ (1 of 1 - PCV) 2010 ZOSTER VACCINE (1 of 2) 2010 SCREENING FOR DIABETES 11/08/2018 DEPRESSION SCREENING 10/03/2024 COVID-19 VACCINE (1 - 2023-2 5 season) 2025 INFLUENZA VACCINE (#1) 2025 Respiratory Syncytial Virus (RSV) Vaccine Pt: or over 60 yrs (1 - 1-dose 75+ series) 2035 HEPATITIS B VACCINE Aged Out No longe r eligible based on patient's age to complete this topic HIB VACCINE Aged Out No longer eligi ble based on patient's age to complete this topic HPV VACCINE Aged Out No longer eligi ble based on patient's age to complete this topic MENINGOCOCCAL (Group B) VACC INE SHARED DECISION-MAKING Aged Out No longer eligibl e based on patient's age to complete this topic MENINGOCOCCAL GROUPS A/C/Y/W VACCINE Aged Out No longer eligible b ased on patient's age to complete this topic Insurance [employer] [facility] CIGNA CIGNA CIGNA Care Teams Profile Shaper Operator Relationship Specialty Start Date End Date Kaden Leon MD PCP - General Internal Medicine 11/06/17
--- OUTSIDE RECORDS SUMMARY | 2025-06-17 11:46 | XMS_ITS | Clinical Summary ---
Author Organization [facility] Address [address] [place] [address] Care Team Providers Care Compliance Specialist Name Role Phone Kaden Leon MD Primary Care Provider [phone] Source Comments [facility],non-owned Affiliates and Associated Physician Practices is amultiple site organization consisting of ambulatory clinics and hospital sitesin [place], [place], [place] and [place]. This disclosure is being madepursuant to the Care Everywhere program and may not contain all information available regarding this patient. Last updated 18.[facility] Allergies No known active allergies Medications * [...] on file Legal Sex Male 4:35 AM INFORMATION CONSULTANT Gender Identity Not on file Sexual Orientation Not on file Last Filed Vital Signs Vital Sign Reading Time Taken Comments Blood Pressure 118/70 11/08/2018 9:21 AM INFORMATION CONSULTANT Pulse 116 11/08/2018 9:21 AM INFORMATION CONSULTANT Temperature 36.7 C (98.1 F) 11/08/2018 9:21 AM INFORMATION CONSULTANT Respiratory Rate 16 11/08/2018 9:21 AM INFORMATION CONSULTANT Oxygen Saturation 94% 11/08/2018 9:21 AM INFORMATION CONSULTANT Inhaled Oxygen Concentration - - Weight 117.9 kg (260 lb) 11/08/2018 9:21 AM INFORMATION CONSULTANT Height 177.8 cm (5' 10) 11/08/2018 9:21 AM INFORMATION CONSULTANT Body Mass Index 37.31 11/08/2018 9:21 AM INFORMATION CONSULTANT Plan of Treatment Health Maintenance Due Date [...] topic Insurance [employer] [facility] CIGNA CIGNA CIGNA Care Teams Compliance Specialist Relationship Specialty Start Date End Date Kaden Leon MD PCP - General Internal Medicine 11/06/17
[2025-06-17 12:32] LABS: Amylase 114 U/L (30-110); Cholesterol 176 mg/dL (0-200); HDL Direct 34 mg/dL; Lipase 375 U/L (23-300); Triglycerides 147 mg/dL (<150)
[2025-06-18 07:09] LABS: GGT 51 IU/L (0-65)
== END 2025-06-17 10:19 | disposition home or self-care (01) ==
PROVIDERS: PCP Family Medicine; Visit Provider Family Medicine
DX: R74.8 Abnormal levels of other serum enzymes (principal); K76.0 Fatty (change of) liver, not elsewhere classified
CPT/HCPCS: 36415; 76700; 80061; 82150; 82977; 83690

== ENCOUNTER 2025-06-29 08:55 | Outpatient (CLI) | payer MEDICARE, OTHER, SELFPAY ==
[2025-06-29 10:02] LABS: Alanine Aminotransferase 38 U/L (6-50); Albumin Level 4.2 g/dL (3.5-5.1); Alkaline Phosphatase 67 U/L (38-126); Amylase 109 U/L (30-110); Aspartate Amino Transferase 43 U/L (17-59); Bilirubin,Total 0.9 mg/dL (0.2-1.3); Lipase 410 U/L (23-300); Total Protein 7.6 g/dL (6.3-8.2)
[2025-06-29 10:34] LABS: Hepatitis B Surface Antigen Negative (Negative)
[2025-06-29 10:40] LABS: HAV RESULT Negative (Negative); Hepatitis B Core IgM Result Negative (Negative)
[2025-06-30 06:07] LABS: GGT 40 IU/L (0-65)
== END 2025-06-29 08:56 | disposition home or self-care (01) ==
PROVIDERS: PCP Family Medicine; Visit Provider Family Medicine
DX: R74.8 Abnormal levels of other serum enzymes (principal); R74.01 Elevation of levels of liver transaminase levels
CPT/HCPCS: 36415; 80074; 80076; 82150; 82977; 83690

== ENCOUNTER 2025-08-08 07:42 | Outpatient (CLI) | payer MEDICARE, OTHER, SELFPAY ==
--- OUTSIDE RECORDS SUMMARY | 2006-01-12 09:15 | XMS_ITS | Continuity of Care Document ---
Author Organization [facility] Address [address] [place] [address] Phone Care Team Providers Care Wheel Shop Supervisor Name Role Phone Rutherford OD, Benjy Unavailable Unavailable Advance Directives Directive Yes / No Effective Date File Name No Information Encounters Encounter Description Practice Location Reason(s) For Visit Diagnoses Date Provider Providers Copied on Encounter [facility], [address], [place], [place], [id number], [place] tel:[phone] [facility] No Information 2-200 6 Rutherford OD Benjy. [address] [facility] [address] , [address], [place], [address], [place]. tel:[phone] Family History Family Member Type Diagnosis Age At Onset No Information Payers Payer name Insurance type Covered constitution party ID Authoriza tion(s) No Information Social History Type Description Quantity Date Captured Comments Sex Male Smoking Status No Information Chief Complaint And Reason For Visit No Information Reason For Referral Reason For Referral No Information History Of Present Illness Encounter Date Complaint History Of Prese nt Illness No Information Functional Status Date Functional Assessmen t No Information Instructions Date Instruction Additional Infor mation No Information Assessments Type Assessment Date No Information Patient Care Teams Name Effective Dates (start - stop) Status Members No Information
[2025-08-08 08:59] LABS: Hematocrit 46.4 % (42.0-52.0); Hemoglobin 16.0 g/dL (14.0-18.0); Mean Corpuscular HGB Conc 34.5 g/dl (32-36); Mean Corpuscular Hemoglobin 32.7 pg (26-34); Mean Corpuscular Volume 94.9 fl (80-100); Platelet Count Result 130 k/mm3 (150-375); Red Blood Count 4.89 M/mm3 (4.6-6.20); White Blood Count 4.6 K/mm3 (4.5-10.0)
[2025-08-08 09:20] LABS: Alanine Aminotransferase 39 U/L (6-50); Albumin Level 4.4 g/dL (3.5-5.1); Alkaline Phosphatase 67 U/L (38-126); Anion Gap 9 mmol/L (4-12); Aspartate Amino Transferase 42 U/L (17-59); Bilirubin,Total 1.5 mg/dL (0.2-1.3); Blood Urea Nitrogen 11 mg/dL (9-20); Calcium 9.1 mg/dL (8.4-10.2); Carbon Dioxide 24 mmol/L (22-30); Chloride 104 mmol/L (98-107); Estimated Glomerular Filt Rate > 60; Glucose 143 mg/dL (65-110); Lipase 748 U/L (23-300); Potassium 3.9 mmol/L (3.4-5.0); Sodium 137 mmol/L (137-145); Total Protein 7.8 g/dL (6.3-8.2)
--- OUTSIDE RECORDS SUMMARY | 2025-08-08 16:40 | XMS_ITS | Clinical Summary ---
Author Organization [facility] Address [address] [place] [address] Care Team Providers Care Die Maker Bench Stamping Name Role Phone Kaden Leon MD Primary Care Provider [phone] Source Comments [facility],non-owned Affiliates and Associated Physician Practices is amultiple site organization consisting of ambulatory clinics and hospital sitesin [place], [place], [place] and [place]. This disclosure is being madepursuant to the Care Everywhere program and may not contain all information available regarding this patient. Last updated 18.[facility] Allergies No known active allergies Medications * [...] on file Legal Sex Male 4:35 AM LITHOGRAPHIC PLATE MAKER Gender Identity Not on file Sexual Orientation Not on file Last Filed Vital Signs Vital Sign Reading Time Taken Comments Blood Pressure 118/70 11/08/2018 9:21 AM LITHOGRAPHIC PLATE MAKER Pulse 116 11/08/2018 9:21 AM LITHOGRAPHIC PLATE MAKER Temperature 36.7 C (98.1 F) 11/08/2018 9:21 AM LITHOGRAPHIC PLATE MAKER Respiratory Rate 16 11/08/2018 9:21 AM LITHOGRAPHIC PLATE MAKER Oxygen Saturation 94% 11/08/2018 9:21 AM LITHOGRAPHIC PLATE MAKER Inhaled Oxygen Concentration - - Weight 117.9 kg (260 lb) 11/08/2018 9:21 AM LITHOGRAPHIC PLATE MAKER Height 177.8 cm (5' 10) 11/08/2018 9:21 AM LITHOGRAPHIC PLATE MAKER Body Mass Index 37.31 11/08/2018 9:21 AM LITHOGRAPHIC PLATE MAKER Plan of Treatment Health Maintenance Due Date [...] topic Insurance [employer] [facility] CIGNA CIGNA CIGNA Care Teams Die Maker Bench Stamping Relationship Specialty Start Date End Date Kaden Leon MD PCP - General Internal Medicine 11/06/17
--- OUTSIDE RECORDS SUMMARY | 2025-08-08 16:41 | XMS_ITS | Data Portability ---
Author Organization [facility] [employer], Main Office Address [address] [place] [address] Assessment No assessment recorded. Plan of Treatment Reminders Order Date Submit Date Provider Last Modified By Organization Details Last Modified Time Details Appointments None recorded. Lab HbA1c (hemoglobin A1c), blood 2022 023 [email or web address] 477 [facility], [address], [address], [place], [address], 3 08:09:11 Referral gastroenter ologist referral 2022 023 [email or web address] Slava Capellan MD, [address], [address], [place], [address], 3 12:21:20 Procedures None recorded. Surgeries None recorded. Imaging None recorded. Medication Orders Januvia [address] [facility] #[id number], [address], [place], [address], 3 11:16:12 Trulicity 0.75 mg/0.5 mL subcutaneou s pen injector 2022 023 [email or web address] [facility] #[id number], [address], [place], [address], 4 13:32:38 sildenafil 100 mg [address] [facility]armacy #[id number], [address], [place], [address], 3 12:18:44 metformin ER 500 mg tablet,exte nded release 24 hr 2022 023 [email or web address] [id number], [address], [place], [address], 3 07:45:02 lorazepam 1 mg tablet 2022 023 YASMEEN [facility]armacy #[id number], [address], [place], [address], 3 12:19:53 Patient TargetsNo targets recorded. Patient InstructionsNo instructions recorded. 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 In accor dance with the [facility] Perfecto mims Test Code Polic y dated April 2003, we have compl eted your order by using the close st curre ntly or forme rly recog nized AMA panel . We have assbritt blankenship Hepat ic Funct ion Panel (7), Test Code #3227 [address]. If this is not the testi ng you wishe d to recei ve on this speci men, pleas e conta ct the [facility] Clien t Inqui ry/Te chnic al Servi chin Depar tment to john fy the test order . We appre ciate your busin ess. Not Available [facility] ([facility]) [address] [facility], [place], [address], 11/12/2022 04:08:38 11/11/1911/11/2022 AMBIG ABBRE V LP DEFAU LT ambig abbrev LP default commen t A hand- writt en panel /prof ile was recei christofer from your offic e. In accor dance with the [facility] Perfecto uous Test Code [facility] y dated April 2003, we have compl eted your order by using the close st curre ntly or forme rly recog nized AMA panel . We have jackie blankenship Lipid Panel , Test Code #3037 [address]. If this is not the testi ng you wishe d to recei ve on this speci men, pleas e conta ct the [facility] Clien t Inqui ry/Te chnic al Servi chin Depar tment to john fy the test order . We appre ciate your busin ess. Not Available [facility] ([facility]) [address] [place], [address], 11/12/2022 04:08:38 11/11/19 23 11/11/2022 HERMANNIG ABBRE V BMP8 DEFAU LT ambig abbrev BMP8 default commen t A hand- writt en panel /prof ile was recei christofer from your offic e. In accor dance with the [facility] rp Ambig uous Test Code [facility] y dated April 2003, we have compl eted your order by using the close st curre ntly or forme rly recog nized AMA panel . We have jackie blankenship Basic Metab olic Panel (8), Test Code #3227 [address]. If this is not the testi ng you wishe d to recei ve on this speci men, pleas e conta ct the [facility] Clien t Inqui ry/Te chnic al Servi chin Depar tment to john fy the test order . We appre ciate your busin ess. Not Available [facility] ([facility]) [address] [place], [address], 11/12/2022 04:08:37 11/11/19 23 11/12/2022 PROST ATE-S PECIF IC AG prostate specific Ag 0.3 NG/mL 0.0-4. 0 Sandra ECLIA metho dolog y. Accor ding to the Ameri can [employer]o g[employer] iatio n, Serum PSA shoul d decre ase and remai n at undet ectab le level s after radic al prost atect lam. The AUA defin es bioch emica l recur rence as an initi al PSA value 0.2 ng/mL or great er follo wed by a subse quent confi rmato ry PSA value 0.2 ng/mL or great er. Value s obtai krzysztfo with diffe rent assay metho ds or kits canno t be used inter [place] eably . Resul ts canno t be inter prete d as absol [place] evide nce of the prese nce or absen ce of tram hagen se. Not Available [facility] ([facility]) [address] [place], [address], 11/12/2022 04:08:37 11/11/1911/12/2022 HEMOG LOBIN A1C hemoglobin A1C 6.8 % 4.8-5. 6 above high normal Predi abete s: 5.7 - 6.4 Diabe teja: >6.4 Glyce anita contr ol for adult s with diabe teja: <7.0 Not Available [facility] ([facility]) [address] [place], [address], 11/12/2022 04:08:36 11/11/1911/12/2022 HEPAT IC FUNCT ION PANEL (7) protein, total 7.0 g/dL 6.0-8. 5 Not Available [facility] ([facility]) [address] [place], [address], 11/12/2022 04:08:36 11/11/1911/12/2022 HEPAT IC FUNCT ION PANEL (7) albumin 4.6 g/dL 3.8-4. 8 Not Available [facility] ([facility]) [address] [place], [address], 11/12/2022 04:08:36 11/11/19 23 11/12/2022 HEPAT IC FUNCT ION PANEL (7) bilirubin, total 1.1 mg/dL 0.0-1. 2 Not Available [facility] ([facility]) [address] [place], [address], 11/12/2022 04:08:36 11/11/19 23 11/12/2022 HEPAT IC FUNCT ION PANEL (7) bilirubin, direct 0.24 mg/dL 0.00-0 .40 Not Available [facility] ([facility]) [address] [place], [address], 11/12/2022 04:08:36 11/11/19 23 11/12/2022 HEPAT IC FUNCT ION PANEL (7) alkaline phosphatase 72 IU/L 44-121 Not Available [facility] ([facility]) [address] [place], [address], 11/12/2022 04:08:36 11/11/19 23 11/12/2022 HEPAT IC FUNCT ION PANEL (7) AST (SGOT) 46 IU/L 0-40 above high normal Not Available [facility] ([facility]) [address] [place], [address], 11/12/2022 04:08:36 11/11/19 23 11/12/2022 HEPAT IC FUNCT ION PANEL (7) ALT (SGPT) 42 IU/L 0-44 Not Available [facility] ([facility]) [address] [place], [address], 11/12/2022 04:08:36 11/11/19 23 11/12/2022 LIPID PANEL cholesterol, total 180 mg/dL 100-19 9 Not Available [facility] ([facility]) [address] [place], [address], 11/12/2022 04:08:35 11/11/19 23 11/12/2022 LIPID PANEL triglyceride s 199 mg/dL 0-149 above high normal Not Available [facility] ([facility]) [address] [place], [address], 11/12/2022 04:08:35 11/11/19 23 11/12/2022 LIPID PANEL HDL cholesterol 34 mg/dL >39 below low normal Not Available [facility] ([facility]) [address] [place], [address], 11/12/2022 04:08:35 11/11/19 23 11/12/2022 LIPID PANEL VLDL cholesterol claudia 35 mg/dL 5-40 Not Available [facility] ([facility]) [address] [place], [address], 11/12/2022 04:08:35 11/11/19 23 11/12/2022 LIPID PANEL LDL chol calc ([facility]) 111 mg/dL 0-99 above high normal Not Available [facility] ([facility]) [address] [place], [address], 11/12/2022 04:08:35 11/11/19 23 11/12/2022 LIPID PANEL comment: director inpatient headache program Not Available [facility] ([facility]) [address] [place], [address], 11/12/2022 04:08:35 11/11/19 23 11/12/2022 BASIC METAB OLIC PANEL (8) glucose 125 mg/dL 70-99 above high normal Not Available [facility] ([facility]) [address] [place], [address], 11/12/2022 04:08:34 11/11/19 23 11/12/2022 BASIC METAB OLIC PANEL (8) BUN 15 mg/dL 8-27 Not Available [facility] ([facility]) [address] [place], [address], 11/12/2022 04:08:34 11/11/19 23 11/12/2022 BASIC METAB OLIC PANEL (8) creatinine 0.98 mg/dL 0.76-1 .27 Not Available [facility] ([facility]) [address] [place], [address], 11/12/2022 04:08:34 11/11/19 23 11/12/2022 BASIC METAB OLIC PANEL (8) eGFR 87 mL/mi n/1.7 3 >59 Not Available [facility] ([facility]) [address] [place], [address], 11/12/2022 04:08:34 11/11/19 23 11/12/2022 BASIC METAB OLIC PANEL (8) BUN/creatini ne ratio 15 10-24 Not Available [facility] ([facility]) [address] [place], [address], 11/12/2022 04:08:34 11/11/19 23 11/12/2022 BASIC METAB OLIC PANEL (8) sodium 142 mmol/ L 134-14 4 Not Available [facility] ([facility]) [address] [place], [address], 11/12/2022 04:08:34 11/11/19 23 11/12/2022 BASIC METAB OLIC PANEL (8) potassium 4.6 mmol/ L 3.5-5. 2 Not Available [facility] ([facility]) [address] [place], [address], 11/12/2022 04:08:34 11/11/19 23 11/12/2022 BASIC METAB OLIC PANEL (8) chloride 103 mmol/ L 96-106 Not Available [facility] ([facility]) [address] [place], [address], 11/12/2022 04:08:34 11/11/19 23 11/12/2022 BASIC METAB OLIC PANEL (8) carbon dioxide, total 22 mmol/ L 20-29 Not Available [facility] ([facility]) [address] [place], [address], 11/12/2022 04:08:34 11/11/19 23 11/12/2022 BASIC METAB OLIC PANEL (8) calcium 9.4 mg/dL 8.6-10 .2 Not Available [facility] ([facility]) [address] [facility], [place], [address], 11/12/2022 04:08:34 11/11/19 23 11/11/2022 CBC/D IFF AMBIG UOUS DEFAU LT WBC 5.6 x10e3 /uL 3.4-10 .8 Not Available [facility] ([facility]) [address] [facility], [place], [address], 11/12/2022 04:08:32 11/11/19 23 11/11/2022 CBC/D IFF AMBIG UOUS DEFAU LT RBC 4.98 x10e6 /uL 4.14-5 .80 Not Available [facility] ([facility]) [address] [facility], [place], [address], 11/12/2022 04:08:32 11/11/19 23 11/11/2022 CBC/D IFF AMBIG UOUS DEFAU LT hemoglobin 15.9 g/dL 13.0-1 7.7 Not Available [facility] ([facility]) [address] [facility], [place], [address], 11/12/2022 04:08:32 11/11/19 23 11/11/2022 CBC/D IFF AMBIG UOUS DEFAU LT hematocrit 46.9 % 37.5-5 1.0 Not Available [facility] ([facility]) [address] [place], [address], 11/12/2022 04:08:32 11/11/19 23 11/11/2022 CBC/D IFF AMBIG UOUS DEFAU LT MCV 94 fL 79-97 Not Available [facility] ([facility]) [address] [place], [address], 11/12/2022 04:08:32 11/11/19 23 11/11/2022 CBC/D IFF AMBIG UOUS DEFAU LT MCH 31.9 pg 26.6-3 3.0 Not Available [facility] ([facility]) [address] [facility], [place], [address], 11/12/2022 04:08:32 11/11/19 23 11/11/2022 CBC/D IFF AMBIG UOUS DEFAU LT MCHC 33.9 g/dL 31.5-3 5.7 Not Available [facility] ([facility]) [address] [facility], [place], [address], 11/12/2022 04:08:32 11/11/19 23 11/11/2022 CBC/D IFF AMBIG UOUS DEFAU LT RDW 12.5 % 11.6-1 5.4 Not Available [facility] ([facility]) [address] [facility], [place], [address], 11/12/2022 04:08:32 11/11/19 23 11/11/2022 CBC/D IFF AMBIG UOUS DEFAU LT platelets 160 x10e3 /uL 150-45 0 Not Available [facility] ([facility]) [address] [facility], [place], [address], 11/12/2022 04:08:32 11/11/19 23 11/11/2022 CBC/D IFF AMBIG UOUS DEFAU LT neutrophils 51 % not estab. Not Available [facility] ([facility]) [address] [facility], [place], [address], 11/12/2022 04:08:32 11/11/19 23 11/11/2022 CBC/D IFF AMBIG UOUS DEFAU LT lymphs 37 % not estab. Not Available [facility] ([facility]) [address] [facility], [place], [address], 11/12/2022 04:08:32 11/11/19 23 11/11/2022 CBC/D IFF AMBIG UOUS DEFAU LT monocytes 10 % not estab. Not Available [facility] ([facility]) [address] [facility], [place], [address], 11/12/2022 04:08:32 11/11/19 23 11/11/2022 CBC/D IFF AMBIG UOUS DEFAU LT eos 1 % not estab. Not Available [facility] ([facility]) [address] [facility], [place], [address], 11/12/2022 04:08:32 11/11/19 23 11/11/2022 CBC/D IFF AMBIG UOUS DEFAU LT basos 1 % not estab. Not Available [facility] ([facility]) [address] [facility], [place], [address], 11/12/2022 04:08:32 11/11/19 23 11/11/2022 CBC/D IFF AMBIG UOUS DEFAU LT immature cells director inpatient headache program Not Available [facility] ([facility]) [address] [place], [address], 11/12/2022 04:08:32 11/11/19 23 11/11/2022 CBC/D IFF AMBIG UOUS DEFAU LT neutrophils (absolute) 2.8 x10e3 /uL 1.4-7. 0 Not Available [facility] ([facility]) [address] [place], [address], 11/12/2022 04:08:32 11/11/19 23 11/11/2022 CBC/D IFF AMBIG UOUS DEFAU LT lymphs (absolute) 2.1 x10e3 /uL 0.7-3. 1 Not Available [facility] ([facility]) [address] [place], [address], 11/12/2022 04:08:32 11/11/19 23 11/11/2022 CBC/D IFF AMBIG UOUS DEFAU LT monocytes(ab solute) 0.6 x10e3 /uL 0.1-0. 9 Not Available [facility] ([facility]) [address] [facility], [place], [address], 11/12/2022 04:08:32 11/11/19 23 11/11/2022 CBC/D IFF AMBIG UOUS DEFAU LT eos (absolute) 0.1 x10e3 /uL 0.0-0. 4 Not Available [facility] ([facility]) [address] [facility], [place], [address], 11/12/2022 04:08:32 11/11/19 23 11/11/2022 CBC/D IFF AMBIG UOUS DEFAU LT baso (absolute) 0.1 x10e3 /uL 0.0-0. 2 Not Available [facility] ([facility]) [address] [facility], [place], [address], 11/12/2022 04:08:32 11/11/19 23 11/11/2022 CBC/D IFF AMBIG UOUS DEFAU LT immature granulocytes 0 % not estab. Not Available [facility] ([facility]) [address] [facility], [place], [address], 11/12/2022 04:08:32 11/11/19 23 11/11/2022 CBC/D IFF AMBIG UOUS DEFAU LT immature grans (abs) 0.0 x10e3 /uL 0.0-0. 1 Not Available [facility] ([facility]) [address] [facility], [place], [address], 11/12/2022 04:08:32 11/11/19 23 11/11/2022 CBC/D IFF AMBIG UOUS DEFAU LT NRBC director inpatient headache program Not Available [facility] ([facility]) [address] [facility], [place], [address], 11/12/2022 04:08:32 11/11/19 23 11/11/2022 CBC/D IFF PERFECTO MIMS DEFAU LT hematology comments: director inpatient headache program A hand- writt en panel /prof jesus was recei christofer from your offic e. In accor dance with the [facility] Perfecto mims Test Code Polic y dated April 2003, we have assig krzysztof CBC with Diffe renti al/Pl atele t, Test Code #[address]. If this is not the testi ng you wishe d to recei ve on this speci men, pleas e conta ct the [facility] Clien t Inqui ry/ Techn ical Servi chin Depar tment to john fy the test order . We appre ciate your busin ess. Not Available [facility] ([facility]) [address] [place], [address], 11/12/2022 04:08:32 03/30/20 23 03/31/2023 UA/M W/RFL X CULTU RE, ROUTI NE specific gravity 1.022 1.005- 1.030 Not Available [facility] ([facility]) [address] [place], [address], 03/31/2023 09:12:59 03/30/20 23 03/31/2023 UA/M W/RFL X CULTU RE ROUTI NE pH 7.0 5.0-7. 5 Not Available [facility] ([facility]) [address] [place], [address], 03/31/2023 09:12:59 03/30/20 23 03/31/2023 UA/M W/RFL X CULTU RE ROUTI NE urine-color YELLOW yellow Not Available [facility] ([facility]) [address] [place], [address], 03/31/2023 09:12:59 03/30/20 23 03/31/2023 UA/M W/RFL X CULTU RE, ROUTI NE appearance CLEAR clear Not Available [facility] ([facility]) [address] [place], [address], 03/31/2023 09:12:59 03/30/20 23 03/31/2023 UA/M W/RFL X CULTU RESHAHIDAI NE WBC esterase NEGATI VE negati ve Not Available [facility] ([facility]) [address] [facility], [place], [address], 03/31/2023 09:12:59 03/30/20 23 03/31/2023 UA/M W/RFL X CULTU RE ROUTI NE protein TRACE negati ve/tra ce Not Available [facility] ([facility]) [address] [facility], [place], [address], 03/31/2023 09:12:59 03/30/20 23 03/31/2023 UA/M W/RFL X CULTU RE ROUTI NE glucose NEGATI VE negati ve Not Available [facility] ([facility]) [address] [facility], [place], [address], 03/31/2023 09:12:59 03/30/20 23 03/31/2023 UA/M W/RFL X CULTU RE ROUTI NE ketones NEGATI VE negati ve Not Available [facility] ([facility]) [address] [facility], [place], [address], 03/31/2023 09:12:59 03/30/20 23 03/31/2023 UA/M W/RFL X CULTU RE ROUTI NE occult blood NEGATI VE negati ve Not Available [facility] ([facility]) [address] [place], [address], 03/31/2023 09:12:59 03/30/20 23 03/31/2023 UA/M W/RFL X CULTU RE ROUTI NE bilirubin NEGATI VE negati ve Not Available [facility] ([facility]) [address] [place], [address], 03/31/2023 09:12:59 03/30/20 23 03/31/2023 UA/M W/RFL X CULTU RE, ROUTI NE urobilinogen ,semi-qn 1.0 mg/dL 0.2-1. 0 Not Available [facility] ([facility]) [address] [facility], [place], [address], 03/31/2023 09:12:59 03/30/2003/31/2023 UA/M W/RFL X CULTU RE, ROUTI NE nitrite, urine NEGATI VE negati ve Not Available [facility] ([facility]) [address] [place], [address], 03/31/2023 09:12:59 03/30/2003/31/2023 UA/M W/RFL X CULTU RE, ROUTI NE microscopic examination COMMEN T Micro scopi c follo ws if indic ated. Not Available [facility] ([facility]) [address] [facility], [place], [address], 03/31/2023 09:12:59 03/30/2003/31/2023 UA/M W/RFL X CULTU RE, ROUTI NE microscopic examination SEE BELOW: Micro scopi c was indic ated and was perfo rmed. Not Available [facility] ([facility]) [address] [place], [address], 03/31/2023 09:12:59 03/30/2003/31/2023 UA/M W/RFL X CULTU RE, ROUTI NE WBC 0-5 /hpf 0 - 5 Not Available [facility] ([facility]) [address] [place], [address], 03/31/2023 09:12:59 03/30/2003/31/2023 UA/M W/RFL X CULTU RE, ROUTI NE RBC 0-2 /hpf 0 - 2 Not Available [facility] ([facility]) [address] [place], [address], 03/31/2023 09:12:59 03/30/20 23 03/31/2023 UA/M W/RFL X CULTU RE, ROUTI NE epithelial cells (non renal) NONE SEEN /hpf 0 - 10 Not Available [facility] ([facility]) [address] [facility], [place], [address], 03/31/2023 09:12:59 03/30/20 23 03/31/2023 UA/M W/RFL X CULTU RE, ROUTI NE epithelial cells (renal) 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 Not Available [facility] ([facility]) [address] [facility], [place], [address], 03/31/2023 09:12:59 03/30/20 23 03/31/2023 UA/M W/RFL X CULTU RE, ROUTI NE casts NONE SEEN /lpf none seen Not Available [facility] ([facility]) [address] [facility], [place], [address], 03/31/2023 09:12:59 03/30/20 23 03/31/2023 UA/M W/RFL X CULTU RE, ROUTI NE cast type 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 Not Available [facility] ([facility]) [address] [facility], [place], [address], 03/31/2023 09:12:59 03/30/20 23 03/31/2023 UA/M W/RFL X CULTU RE, ROUTI NE crystals 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 Not Available [facility] ([facility]) [address] [facility], [place], [address], 03/31/2023 09:12:59 03/30/20 23 03/31/2023 UA/M W/RFL X CULTU RE, ROUTI NE crystal type 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 Not Available [facility] ([facility]) [address] [facility], [place], [address], 03/31/2023 09:12:59 03/30/20 23 03/31/2023 UA/M W/RFL X CULTU RE, ROUTI NE mucus threads 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 Not Available [facility] ([facility]) [address] [place], [address], 03/31/2023 09:12:59 03/30/20 23 03/31/2023 UA/M W/RFL X CULTU RE, ROUTI NE bacteria NONE SEEN none seen/f ew Not Available [facility] ([facility]) [address] [facility], [place], [address], 03/31/2023 09:12:59 03/30/20 23 03/31/2023 UA/M W/RFL X CULTU RE, ROUTI NE yeast 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 Not Available [facility] ([facility]) [address] [facility], [place], [address], 03/31/2023 09:12:59 03/30/20 23 03/31/2023 UA/M W/RFL X CULTU RE, ROUTI NE trichomonas 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 Not Available [facility] ([facility]) [address] [place], [address], 03/31/2023 09:12:59 03/30/20 23 03/31/2023 UA/M W/RFL X CULTU RE, ROUTI NE comment 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 Not Available [facility] ([facility]) [address] [place], [address], 03/31/2023 09:12:59 03/30/20 23 03/31/2023 UA/M W/RFL X CULTU RE, ROUTI NE urinalysis reflex COMMEN T This speci men will not refle x to a Urine Cultu re. Not Available [facility] ([facility]) [address] [place], [address], 03/31/2023 09:12:59 05/20/20 23 05/23/2023 UA/M W/RFL X CULTU RE, ROUTI NE specific gravity COMMEN T Test not perfo rmed due to the age of this speci men. Not Available [facility] ([facility]) [address] [facility], [place], [address], 05/25/2023 08:23:33 05/20/20 23 05/23/2023 UA/M W/RFL X CULTU RE, ROUTI NE pH TNP Test not perfo rmed Not Available [facility] ([facility]) [address] [facility], [place], [address], 05/25/2023 08:23:33 05/20/2005/23/2023 UA/M W/RFL X CULTU RE, ROUTI NE urine-color 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 Not Available [facility] ([facility]) [address] [facility], [place], [address], 05/25/2023 08:23:33 05/20/20 23 05/23/2023 UA/M W/RFL X CULTU RE, ROUTI NE appearance 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 Not Available [facility] ([facility]) [address] [facility], [place], [address], 05/25/2023 08:23:33 05/20/20 23 05/23/2023 UA/M W/RFL X CULTU RE, ROUTI NE WBC esterase 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 Not Available [facility] ([facility]) [address] [place], [address], 05/25/2023 08:23:33 05/20/2005/23/2023 UA/M W/RFL X CULTU RE, ROUTI NE protein TNP Test not perfo rmed Not Available [facility] ([facility]) [address] [place], [address], 05/25/2023 08:23:33 05/20/20 23 05/23/2023 UA/M W/RFL X CULTU RE, ROUTI NE glucose TNP Test not perfo rmed Not Available [facility] ([facility]) [address], [place], [address], 05/25/2023 08:23:33 05/20/2005/23/2023 UA/M W/RFL X CULTU RE ROUTI NE ketones TNP Test not perfo rmed Not Available [facility] ([facility]) [address] [facility], [place], [address], 05/25/2023 08:23:33 05/20/2005/23/2023 UA/M W/RFL X CULTU RE ROUTI NE occult blood 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 Not Available [facility] ([facility]) [address] [facility], [place], [address], 05/25/2023 08:23:33 05/20/2005/23/2023 UA/M W/RFL X CULTU REMARILOU NE bilirubin 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 Not Available [facility] ([facility]) [address] [facility], [place], [address], 05/25/2023 08:23:33 05/20/2005/23/2023 UA/M W/RFL X CULTU RESHAHIDAI NE urobilinogen ,semi-qn 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 Not Available [facility] ([facility]) [address] [facility], [place], [address], 05/25/2023 08:23:33 05/20/2005/23/2023 UA/M W/RFL X CULTU REMARILOU NE nitrite, urine 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 Not Available [facility] ([facility]) [address] [facility], [place], [address], 05/25/2023 08:23:33 05/20/2005/23/2023 UA/M W/RFL X CULTU RE ROUTI NE microscopic examination 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 Not Available [facility] ([facility]) [address] [facility], [place], [address], 05/25/2023 08:23:33 05/20/20 23 05/23/2023 UA/M W/RFL X CULTU RE, ROUTI NE microscopic examination 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 Not Available [facility] ([facility]) [address] [facility], [place], [address], 05/25/2023 08:23:33 05/20/20 23 05/23/2023 UA/M W/RFL X CULTU RE, ROUTI NE urinalysis reflex 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 Not Available [facility] ([facility]) [address] [facility], [place], [address], 05/25/2023 08:23:33 05/20/2005/23/2023 SPECI MEN STATU S REPOR T specimen status report COMMEN T Test not perfo rmed due to the age of this speci men. TEST: [id number] UA/M w/rfl x Cultu re, Routi ne Not Available [facility] ([facility]) [address] [facility], [place], [address], 05/25/2023 08:23:34 06/15/20 23 06/15/2023 UA/M W/RFL X CULTU RE, ROUTI NE specific gravity 1.022 1.005- 1.030 Not Available [facility] ([facility]) [address] [facility], [place], [address], 06/16/2023 03:08:03 06/15/2006/15/2023 UA/M W/RFL X CULTU RE, ROUTI NE pH 5.5 5.0-7. 5 Not Available [facility] ([facility]) [address] [facility] [place], [address], 06/16/2023 03:08:03 06/15/2006/15/2023 UA/M W/RFL X CULTU RE, ROUTI NE urine-color Yellow yellow Not Available [facility] ([facility]) [address] [facility], [place], [address], 06/16/2023 03:08:03 06/15/20 23 06/15/2023 UA/M W/RFL X CULTU REMARILOU NE appearance Clear clear Not Available [facility] ([facility]) [address] [facility], [place], [address], 06/16/2023 03:08:03 06/15/20 23 06/15/2023 UA/M W/RFL X CULTU RE, ROUTI NE WBC esterase Negati ve negati ve Not Available [facility] ([facility]) [address] [facility], [place], [address], 06/16/2023 03:08:03 06/15/2006/15/2023 UA/M W/RFL X CULTU REMARILOU NE protein 1+ negati ve/tra ce abnormal Not Available [facility] ([facility]) [address] [facility], [place], [address], 06/16/2023 03:08:03 06/15/20 23 06/15/2023 UA/M W/RFL X CULTU RE, ROUTSuzanna NE glucose Negati ve negati ve Not Available [facility] ([facility]) [address] [facility], [place], [address], 06/16/2023 03:08:03 06/15/20 23 06/15/2023 UA/M W/RFL X CULTU REMARILOU NE ketones Negati ve negati ve Not Available [facility] ([facility]) [address] [place], [address], 06/16/2023 03:08:03 06/15/2006/15/2023 UA/M W/RFL X CULTU RE, SHAHIDAI NE occult blood 3+ negati ve abnormal Not Available [facility] ([facility]) [address] [place], [address], 06/16/2023 03:08:03 06/15/20 23 06/15/2023 UA/M W/RFL X CULTU RE, ROUTI NE bilirubin Negati ve negati ve Not Available [facility] ([facility]) [address] [facility], [place], [address], 06/16/2023 03:08:03 06/15/20 23 06/15/2023 UA/M W/RFL X CULTU RE, ROUTI NE urobilinogen ,semi-qn 0.2 mg/dL 0.2-1. 0 Not Available [facility] ([facility]) [address] [facility], [place], [address], 06/16/2023 03:08:03 06/15/2006/15/2023 UA/M W/RFL X CULTU RE, ROUTI NE nitrite, urine Negati ve negati ve Not Available [facility] ([facility]) [address] [place], [address], 06/16/2023 03:08:03 06/15/2006/15/2023 UA/M W/RFL X CULTU RE, ROUTI NE microscopic examination See below: Micro scopi c was indic ated and was perfo rmed. 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 Not Available [facility] ([facility]) [address] [place], [address], 06/16/2023 03:08:03 06/15/2006/16/2023 UA/M W/RFL X CULTU RE, ROUTI NE WBC 0-5 /hpf 0 - 5 Not Available [facility] ([facility]) [address] [facility], [place], [address], 06/16/2023 03:08:03 06/15/2006/16/2023 UA/M W/RFL X CULTU RE, ROUTI NE RBC 3-10 /hpf 0 - 2 abnormal Not Available [facility] ([facility]) [address] [facility], [place], [address], 06/16/2023 03:08:03 06/15/20 23 06/16/2023 UA/M W/RFL X CULTU RE, ROUTI NE epithelial cells (non renal) 0-10 /hpf 0 - 10 Not Available [facility] ([facility]) [address] [facility], [place], [address], 06/16/2023 03:08:03 06/15/2006/16/2023 UA/M W/RFL X CULTU RE, ROUTI NE epithelial cells (renal) 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 Not Available [facility] ([facility]) [address] [facility], [place], [address], 06/16/2023 03:08:03 06/15/2006/16/2023 UA/M W/RFL X CULTU RE, ROUTI NE casts None seen /lpf none seen Not Available [facility] ([facility]) [address] [facility], [place], [address], 06/16/2023 03:08:03 06/15/2006/16/2023 UA/M W/RFL X CULTU RE, ROUTI NE cast type 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 Not Available [facility] ([facility]) [address] [facility], [place], [address], 06/16/2023 03:08:03 06/15/2006/16/2023 UA/M W/RFL X CULTU RE, ROUTI NE crystals 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 Not Available [facility] ([facility]) [address] [place], [address], 06/16/2023 03:08:03 06/15/20 23 06/16/2023 UA/M W/RFL X CULTU RE, ROUTI NE crystal type 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 Not Available [facility] ([facility]) [address] [facility], [place], [address], 06/16/2023 03:08:03 06/15/20 23 06/16/2023 UA/M W/RFL X CULTU RE, ROUTI NE mucus threads 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 Not Available [facility] ([facility]) [address] [facility], [place], [address], 06/16/2023 03:08:03 06/15/20 23 06/16/2023 UA/M W/RFL X CULTU RE, ROUTI NE bacteria None seen none seen/f ew Not Available [facility] ([facility]) [address] [facility], [place], [address], 06/16/2023 03:08:03 06/15/20 23 06/16/2023 UA/M W/RFL X CULTU RE, ROUTI NE yeast 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 Not Available [facility] ([facility]) [address] [facility], [place], [address], 06/16/2023 03:08:03 06/15/20 23 06/16/2023 UA/M W/RFL X CULTU RE, ROUTI NE trichomonas 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 Not Available [facility] ([facility]) [address] [place], [address], 06/16/2023 03:08:03 06/15/2006/16/2023 HEMOG LOBIN A1C hemoglobin A1C 7.7 % 4.8-5. 6 above high normal Predi abete s: 5.7 - 6.4 Diabe teja: >6.4 Glyce anita contr ol for adult s with diabe teja: <7.0 Not Available [facility] ([facility]) [address] [facility], [place], [address], 06/16/2023 03:08:04 Result Notes None recorded. Problems Name Problem SNOMED Code Status Onset Date Resolution Date Notes Provider Name and Address Organization Details Recorded Time Hyperchole sterolemia 45802453 Active Not Available [facility] 3 15:49:34 Fatigue 35094523 Active Not Available [facility] 3 15:49:34 COVID-19 678920692 Active 2019 Not Available [facility] 3 15:49:34 Morbid obesity 983194848 Active 2021 Not Available [facility] 3 15:49:34 Obstructiv e sleep apnea syndrome 66782300 Active 2021 Not Available [facility] 3 15:49:34 Glaucoma 57990407 Active 2022 Not Available [facility] 3 15:49:34 Vitreous hemorrhage 40611264 Active 2022 Not Available [facility] 3 15:49:34 Prediabete s 518469792 Active 2022 Not Available [facility] 3 15:49:34 Erectile dysfunctio n 215381783 Active 2022 Not Available [facility] 3 15:49:34 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 Not Available [facility] 3 15:49:34 Dysuria 78092343 Active 2022 Not Available [facility] 3 15:49:34 Acute urinary tract infection 997261876 Active 2022 Not Available [facility] 3 15:49:34 Blood in urine 94795358 Active 2022 Not Available [facility] 3 15:49:34 Diabetes mellitus 36365438 Active 2022 Not Available [facility] 3 15:49:34 Hyperglyce tatyana due to type 2 diabetes mellitus 3538532605182 09 Active 2022 Juanjuliet PERRY Tobias [address], [address], [place], [address] , [facility] 3 10:56:31 Obesity 611567575 Active 2022 Allison PERRY Tobias [address], [address], [place], [address] , [facility] 3 11:18:14 Cough 42429092 Active 2023 Juliana Patricia MD [address], [address], [place], [address] , [facility] 4 10:50:08 Problem Notes None recorded. Procedures Surgical History Date Name Laterality Status Provider Name and Address Organization Details Recorded Time colonoscopy completed Lily Feliciano LPN [facility] 05/25/2023 15:14:38 Shoulder completed Juliana Patricia MD [address], [address], [place], [address], [facility] 12/23/2022 11:50:56 Knee completed Juliana Patricia MD [address], [address], [place], [address], [facility] 12/23/2022 11:50:21 Cataract Surgery completed Juliana Patricia MD [address], [address], [place], [address], [facility] 12/23/2022 11:50:14 Imaging Results None recorded. Procedure Notes None recorded. Medical Equipment None Reported. Allergies No known drug allergies Medications Name Sig Start Date Stop Date Status Note LastModified by Organization Details LastModified Time amoxicill in 500 mg capsule TAKE 1 CAPSULE BY MOUTH EVERY 8 HOURS UNTIL ALL GONE 09/07 completed Not Available Not Available Not Available latanopro st 0.005 % eye drops INSTILL 1 DROP INTO BOTH EYES ONCE DAILY AT BEDTIME active Not Available Not Available No t Available atorvasta tin 20 mg tablet TAKE 1 TABLET(S ) EVERY DAY BY ORAL ROUTE. 09/11 completed Not Available Not Available Not Available cetirizin e 10 mg tablet Take 1 tablet every day by oral route. active Not Available Not Available No t Available azithromy burak 250 mg tablet TAKE 2 TABLETS BY MOUTH TODAY, THEN TAKE 1 TABLET DAILY FOR 4 DAYS DIRECTED 12/12 completed Not Available Not Available Not Available hydrocodo ne 5 mg-acetam inophen 325 mg tablet TAKE 1 TABLET BY MOUTH EVERY 8 HOURS NEEDED FOR PAIN active Not Available Not Available No t Available Viagra 50 mg tablet TAKE 1 TABLET NEEDED active patient states insuranc e will pay for #90, has gotten before Not Available Not Available Not Available sildenafi l 100 mg tablet TAKE 1 TABLET BY MOUTH EVERY DAY active Not Available Not Available No t Available ketorolac 10 mg tablet active Not Available Not Available Not Available tamsulosi n 0.4 mg capsule TAKE 1 CAPSULE BY MOUTH EVERY DAY active Not Available Not Available No t Available hyoscyami ne 0.125 mg disintegr ating tablet DISSOLVE 1 TABLET UNDER TONGUE EVERY 6 HOURS NEEDED FOR BLADDER SPASMS active Not Available Not Available No t Available simvastat in 20 mg tablet TAKE 1 TABLET BY MOUTH EVERYDAY AT BEDTIME active Not Available Not Available No t Available brimonidi ne 0.2 % eye drops INSTILL 1 DROP INTO BOTH EYES EVERY DAY IN THE MORNING active Not Available Not Available No t Available docusate sodium 100 mg capsule TAKE 1 CAPSULE BY MOUTH TWICE A DAY active Not Available Not Available No t Available hydrocodo ne 5 mg-acetam inophen 500 mg tablet active Not Available Not Available Not Available lorazepam 1 mg tablet TAKE 1 TABLET BY MOUTH 30 MINUTES PRIOR TO FLYING active Not Available Not Available No t Available levofloxa burak 750 mg tablet TAKE 1 TABLET BY MOUTH DAILY active Not Available Not Available No t Available timolol maleate 0.5 % eye drops INSTILL 1 DROP INTO BOTH EYES DAILY IN THE MORNING active Not Available Not Available No t Available metformin ER 500 mg tablet,ex tended release 24 hr TAKE 1 TABLET BY MOUTH EVERY DAY 06/27 completed Not Available Not Available Not Available tobramyci n 0.3 %-dexamet hasone 0.1 % eye drops,juancho pension 12/07 completed Not Available Not Available Not Available chlorhexi dine gluconate 0.12 % mouthwash active Not Available Not Available No t Available Travatan Z 0.004 % eye drops INSTILL 1 DROP INTO BOTH EYES BEFORE BED DIRECTED active Not Available Not Available No t Available Januvia 100 mg tablet TAKE 1 TABLET BY MOUTH EVERY DAY active Not Available Not Available No t Available Combigan 0.2 %-0.5 % eye drops 12/07 completed Not Available Not Available Not Available Suprep Bowel Prep Kit 17.5 gram-3.13 gram-1.6 gram oral solution USE DIRECTED ON PACKAGIN G active Not Available Not Available No t Available OneTouch Verio test strips TEST ONCE PER DAY active Not Available Not Available No t Available Trulicity 0.75 mg/0.5 mL subcutane ous pen injector Inject 0.75mg weekly active Not Available Not Available No t Available OneTouch Verio Flex Meter USE DIRECTED . active Not Available Not Available No t Available Shingrix (PF) 50 mcg/0.5 mL intramusc ular suspensio n, kit 12/07 completed Not Available Not Available Not Available OneTouch Delica Plus Lancet 33 gauge TEST ONCE PER DAY active Not Available Not Available No t Available Flucelvax Quad (PF) 60 mcg (15 mcg x 4)/0.5 mL IM syringe 12/07 completed Not Available Not Available Not Available Ozempic 0.25 mg or 0.5 mg (2 mg/3 mL) subcutane ous pen injector 0.5 mg sc qweek 2023 active Not Available Not Available Not Avai lable Vitals Date Recorded Body height Body mass index (BMI) Body weight Body temperature Heart rate Oxygen saturation Oxygen saturation in Arterial blood by Pulse oximetry Systolic And Diastolic Provider Name and Address Organization Details Last Updated DateTime 3 177.8 cm 41.6 kg/m2 409239. 79 g 98.1 [degF] 70 /min 98 % 98 % 128/86 mm[Hg] Lani Dotson MA [place] - [facility] 3 11:37:03 Date Recorded Body height Provider Name an d Address Organization Details Last Updated DateTime 03/30/2023 177.8 cm Kathy Gandhi CMA [facility] [employer] 03/30/2023 18:35:02 Date Recorded Body height Body mass index (BMI) Body weight Body temperature Heart rate Oxygen saturation Oxygen saturation in Arterial blood by Pulse oximetry Systolic And Diastolic Provider Name and Address Organization Details Last Updated DateTime 3 177.8 cm 41.3 kg/m2 875458. 6 g 99.8 [degF] 80 /min 96 % 96 % 124/80 mm[Hg] Yenni Watson RN [facility] [employer] 3 10:20:07 Date Recorded Body height Oxygen saturation Oxygen saturation in Arterial blood by Pulse oximetry Heart rate Body temperature Systolic And Diastolic Provider Name and Address Organization Details Last Updated DateTime 2 177.8 cm 97 % 97 % 74 /min 97.1 [degF] 124/76 mm[Hg] Not Available [facility] 14:47:46 Social History Question Answer Notes LastModified by [employer] ion Details LastModified Time Tobacco Smoking Status Never Smoker Lani Dotson MA [facility], [facility] [employer] 12/23/2022 11:40:45 What Is Your Level Of Caffeine Consumption? Moderate [email or web address] Information not available 12/23/2022 What Type Of Diet Are You Following? REGULAR [email or web address] Information not available 12/23/2022 What Was The Date Of Your Most Recent Tobacco Screening? 12/23/2022 [email or web address] Information not available 12/23/2022 Do You Have Any Dietary Restrictions? No [email or web address] Information not available 12/23/2022 Sex: Unknown Functional Status Question Answer Note LastModified by Organizat ion Details LastModified Time Do you use any illicit or recreational drugs? No [email or web address] Information not available 12/23/2022 What is your level of alcohol consumption? 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 Moderate [email or web address] Information not available 12/23/2022 Mental Status None recorded. Family History Relationship Description Onset Age of this Age Resolved Age Notes LastModified by Organization Details LastModified Time Maternal Grandfather Diabetes mellitus [email or web address] Not available 12/02 11:38:12 Maternal Uncle Malignant neoplasm of colon [email or web address] Not available 12/02 11:39:07 Medical History No medical history recorded. Immunizations Vaccine Type Date Status Note Provider Nam e and Address Organization Details Recorded Time Tdap 3 completed Juliana Patricia MD [address] [place] [address], [facility] [address], [place], [address], [facility] 12/31/2022 10:01:05 COVID-19, mRNA, LNP-S, bivalent, PF, 50 mcg/0.5 mL or 25mcg/0.25 mL dose 3 completed Lily Feliciano LPN null, [facility] 07/08/2023 11:34:16 influenza, unspecified formulation 3 completed Lily Feliciano LPN null, [facility] 07/08/2023 11:34:35 SARS-COV-2 (COVID-19) vaccine, UNSPECIFIED 1 completed Not Available [facility] 12/01/2022 14:51:26 SARS-COV-2 (COVID-19) vaccine, UNSPECIFIED 1 completed Not Available [facility] 12/01/2022 14:51:26 Influenza, split virus, quadrivalent, preservative 0 completed Not Available [facility] 12/01/2022 14:51:27 Influenza, split virus, quadrivalent, preservative 6 completed Not Available [facility] 12/01/2022 14:51:27 Influenza, high-dose, trivalent, PF 3 completed Not Available [facility] 12/01/2022 14:51:27 Past Encounters Encounter ID Performer Location Encounter Start Date Encounter Closed Date Diagnosis/Indication Diagnosis SNOMED-CT Code Diagnosis ICD10 Code Diagnosis IMO Codes Diagnosis Note [id number] PERRY Nielsen [facility] [place] [address] [place] [address] 02/27/2021 00:00:00 02/27/2021 13:52:55 [id number] [facility] [place] [address] [place] [address] 07/31/2021 00:00:00 07/31/2021 14:28:10 [id number] [facility] [place] [address] [place] [address] 12/07/2021 00:00:00 12/07/2021 12:39:19 [id number] Diana Krishna ASSOCIATE [facility] [place] [address] [place] [address] 09/07/2022 00:00:00 09/07/2022 16:46:38 [id number] Juliana Patricia MD [facility] [place] [address] [place] [address] 12/23/2022 11:25:50 12/23/2022 12:50:31 Prediabetes 355568402 R73.03 tdap todayfinis h shingrix seriescolo noscopy referral givenfasti ng labs up to date Erectile dysfunction 860 356568 F52.21 Flying phobia 917671174 F40.243 Adult heal th examination 068485553 Z00.00 tdap todayfinis h shingrix seriescolo noscopy referral givenfasti ng labs up to date Screening for malignant neoplasm of colon 955732288 Z12.11 Active or passive immunization 506431628 Z23 [id number] Juliana Patricia MD [facility] [place] [address] [place] [address] 03/30/2023 18:33:57 03/30/2023 18:36:01 [id number] XENA Cook [facility] [place] [address] [facility] [place] [address] 05/20/2023 14:52:51 05/20/2023 16:26:48 [id number] Juliana Patricia MD [facility] [place] [facility] [address] [facility] [address] [place] [address] 07/07/2023 10:05:09 07/07/2023 17:14:21 Hyperglycemia due to type 2 diabetes mellitus 6781133983 78045 E11.65 WorseningA 1C 6.8 (11/11/22); 7.7 (06/15/23)L evels did not improve with metformin and pt developed hematuria and proteinuri a while taking. Pt advised to stop taking metformin. Will start on Januvia instead.Di scussed need for regular exercise, increase intake of water/vege tables/fib er. Decrease intake of carbs, especially white rice/pasta /flour/andrews ad/sugar.M ay also be a good candidate for GLP-1. Blood in urine 54141621 R31.9 New problemBesuzanna posey followed by urologArtie p scheduled appt for u/s Obesity 722284260 E66.9 ChronicNot improved despite report of dieting/li festyle changes.Ad vised eat 3 meals daily with 1-2 healthy snacks, eliminate caloric drinks, no grazing btw meals, reduce packaged foods, portion control, modificati on of cooking style, low fat/low sugar items, 30 minutes of exercise at least 3x/week, reduce emotional/ stress eating, increase fruits/veg etables, take 15-20 minutes to eat.Encour aged pt to keep food diary for the next 2 weeks. Try to keep daily calorie count btw 8750-9525 calories. Gave meal planning handout. May need to consider referral to broadcast designer/ nutritioni st as well.GLP-1 for DM will also aid in weight loss efforts. Health Concerns Section Related Observation LastModified by Organization Detai ls LastModified Time None Recorded Concern Status LastModified by Organization Details LastModified Time None Recorded Advance Directives Directive None Recorded Payers Insurance Date Sequence Insurance Name Policy Number Policy Armstrong Covered Member ID Armstrong Member ID Guarantor Name 10/12/2023 1 [facility] [facility] (PPO) [id number] Silvestre Mendoza [id number] Silvestre Mendoza Notes Date Note Type Note Provider Name and Address Organization Details Recorded Time 12/23/2022 text/html here for check up Juliana Patricia MD [address], [facility] [address], [place], [address], [facility] 12/31/2022 10:02:05 07/07/2023 text/html 1. Pt in office with for f/u on labs. Pts states that pt was started on metformin for A1C of 6.8. States he stopped the metformin b/c they found blood in his urine. Blood sugars are now 173, 185, 148, 165 since stopping metformin about 2 weeks ago.2. Pt states he is having an u/s with urology tomorrow to evaluate cause of protein/blood in urine. PERRY Nielsen [address], [facility] [address], [place], [address], [facility] 07/07/2023 19:02:18
== END 2025-08-08 07:43 | disposition home or self-care (01) ==
PROVIDERS: PCP Family Medicine; Visit Provider Nurse Practitioner Family
DX: R74.8 Abnormal levels of other serum enzymes (principal); R74.01 Elevation of levels of liver transaminase levels; K76.0 Fatty (change of) liver, not elsewhere classified; E66.9 Obesity, unspecified
CPT/HCPCS: 36415; 80053; 83690; 85027

== ENCOUNTER 2025-08-16 07:48 | Outpatient (CLI) | payer MEDICARE, OTHER, SELFPAY ==
--- OUTSIDE RECORDS SUMMARY | 2006-01-12 09:15 | XMS_ITS | Continuity of Care Document ---
Author Organization [facility] Address [address] [place] [address] Phone Care Team Providers Care Chip Silo Tender Name Role Phone Rutherford OD, Benjy Unavailable Unavailable Advance Directives Directive Yes / No Effective Date File Name No Information Encounters Encounter Description Practice Location Reason(s) For Visit Diagnoses Date Provider Providers Copied on Encounter [facility], [address], [place], [place], [id number], [place] tel:[phone] [facility] [place] No Information 2-200 6 Rutherford OD Benjy. [address] [facility] [place] , [address], [place], [address], [place]. tel:[phone] Family History Family Member Type Diagnosis Age At Onset No Information Payers Payer name Insurance type Covered libertarian ID Authoriza tion(s) No Information Social History [...]
--- NOTE | ~2025-08-16 | CT_ITS ---
EXAM/PROCEDURE: CT abdomen pelvis wo/w con HISTORY: K76.0 - Fatty (change of) liver, not elsewhere classified COMPARISON: July 08, 2023 TECHNIQUE: Contrast-enhanced CT of the abdomen and pelvis performed. FINDINGS: The lung bases are clear. Heart size normal with coronary calcifications noted. The bowel gas pattern is nonobstructive with no free air or pneumatosis. Tiny amount of free fluid may be present in the paracolic gutters, right greater than left. Normal size appendix. No hydroureteronephrosis or AAA. Borderline distended gallbladder appears similar to the previous exam. Adrenal glands spleen pancreas stomach and liver appear stable. Small subcentimeter low-density lesion in the right lobe of the liver image 53 series 7 noted. Mild to moderate fatty liver changes of liver. Moderate severe diverticular disease with no gross acute diverticulitis. Prostate normal size. Small omentum containing inguinal hernias. No urolithiasis seen. The urinary bladder is unopacified and nondistended on all sequences Limited evaluation. No obvious acute abnormality in the urinary bladder. Diffuse degenerative changes in the bones present which otherwise appear intact. IMPRESSION: No acute findings. Fatty liver changes again noted along with moderately severe diverticular disease and other chronic appearing findings as above. The urinary bladder is poorly evaluated on this exam. Reviewed, dictated and finalized at location A. [facility] IMPRESSION: No acute findings. Fatty liver changes again noted along with moderately severe diverticular disease and other chronic appearing findings as above. The urinar y bladder is poorly evaluated on this exam.
--- OUTSIDE RECORDS SUMMARY | 2025-08-16 07:51 | XMS_ITS | Clinical Summary ---
Author Organization [facility] Address [address] [place] [address] Care Team Providers Care Normalizer Name Role Phone Kaden Leon MD Primary Care Provider [phone] Source Comments [facility],non-owned Affiliates and Associated Physician Practices is amultiple site organization consisting of ambulatory clinics and hospital sitesin [place], [place], [place] and [place]. This disclosure is being madepursuant to the Care Everywhere program and may not contain all information available regarding this patient. Last updated 18.[facility] Allergies No known active allergies Medications * [...] on file Legal Sex Male 4:35 AM CNA PCT Gender Identity Not on file Sexual Orientation Not on file Last Filed Vital Signs Vital Sign Reading Time Taken Comments Blood Pressure 118/70 11/08/2018 9:21 AM CNA PCT Pulse 116 11/08/2018 9:21 AM CNA PCT Temperature 36.7 C (98.1 F) 11/08/2018 9:21 AM CNA PCT Respiratory Rate 16 11/08/2018 9:21 AM CNA PCT Oxygen Saturation 94% 11/08/2018 9:21 AM CNA PCT Inhaled Oxygen Concentration - - Weight 117.9 kg (260 lb) 11/08/2018 9:21 AM CNA PCT Height 177.8 cm (5' 10) 11/08/2018 9:21 AM CNA PCT Body Mass Index 37.31 11/08/2018 9:21 AM CNA PCT Plan of Treatment Health Maintenance Due Date [...] DEPRESSION SCREENING 10/03/2024 COVID-19 VACCINE (1 - 2024-2 6 season) 2025 INFLUENZA VACCINE (#1) 2025 Respiratory [...] topic Insurance [employer] [facility] CIGNA CIGNA CIGNA Care Teams Normalizer Relationship Specialty Start Date End Date Kaden Leon MD PCP - General Internal Medicine 11/06/17
== END 2025-08-16 07:49 | disposition home or self-care (01) ==
PROVIDERS: PCP Family Medicine; Visit Provider Nurse Practitioner Family
DX: K76.0 Fatty (change of) liver, not elsewhere classified (principal); R74.8 Abnormal levels of other serum enzymes; R74.01 Elevation of levels of liver transaminase levels
CPT/HCPCS: 74178; Q9967

== ENCOUNTER 2025-09-13 08:57 | Outpatient (CLI) | payer MEDICARE, OTHER, SELFPAY ==
[2025-09-13 09:47] LABS: Hematocrit 49.8 % (42.0-52.0); Hemoglobin 17.5 g/dL (14.0-18.0); Immature Platelet Fraction Pct 3.5 % (0.9-11.2); Mean Corpuscular HGB Conc 35.1 g/dl (32-36); Mean Corpuscular Hemoglobin 32.6 pg (26-34); Mean Corpuscular Volume 92.9 fl (80-100); Platelet Count Result 121 k/mm3 (150-375); Red Blood Count 5.36 M/mm3 (4.6-6.20); White Blood Count 5.8 K/mm3 (4.5-10.0)
[2025-09-13 09:57] LABS: INR 1.0; Prothrombin Time 13.6 Seconds (11.1-14.7)
[2025-09-13 10:30] LABS: Alanine Aminotransferase 36 U/L (6-50); Albumin Level 4.7 g/dL (3.5-5.1); Alkaline Phosphatase 78 U/L (38-126); Anion Gap 9 mmol/L (4-12); Aspartate Amino Transferase 39 U/L (17-59); Bilirubin,Total 1.7 mg/dL (0.2-1.3); Blood Urea Nitrogen 14 mg/dL (9-20); Calcium 9.8 mg/dL (8.4-10.2); Carbon Dioxide 25 mmol/L (22-30); Chloride 105 mmol/L (98-107); Estimated Glomerular Filt Rate > 60; Glucose 136 mg/dL (65-110); Lipase 474 U/L (23-300); Potassium 4.1 mmol/L (3.4-5.0); Sodium 139 mmol/L (137-145); Total Protein 8.4 g/dL (6.3-8.2)
[2025-09-13 12:59] LABS: Iron 132 ug/dL (49-181)
[2025-09-13 13:40] LABS: Ferritin 172.00 ng/mL (11.1-264)
[2025-09-13 13:42] LABS: Percent Iron Saturation 37 % (20-50)
[2025-09-16 15:10] LABS: ANA by IFA Rfx Titer/Pattern Negative (.)
== END 2025-09-13 08:58 | disposition home or self-care (01) ==
PROVIDERS: PCP Family Medicine; Visit Provider Nurse Practitioner Family
DX: K74.60 Unspecified cirrhosis of liver (principal)
CPT/HCPCS: 36415; 80053; 82103; 82390; 82728; 83540; 83550; 83690; 85027; 85055; 85610; 86015; 86038; 86376; 86381